=== PATIENT | female | born 1965 | race Caucasian/White ===

== ENCOUNTER 2019-10-29 19:01 | Inpatient (IN) ==
[2019-10-29] MEDS ORDERED: ONDANSETRON INJ 2 MG/ML 2 ML VIAL IV STA ×2 (19:43→20:05)
[2019-10-29] MEDS ORDERED: fentaNYL citrate 100 MCG/2 ML VIAL IV STA (19:43)
[2019-10-29 19:44] LABS: Basophils # (auto) 0.01 K/uL (0-0.2); Basophils % (auto) 0.1 %; Eosinophils # (auto) 0.12 K/uL (0-0.5); Eosinophils % (auto) 1.1 %; Hematocrit (blood only) 37.8 % (37-47); Hemoglobin 12.9 g/dL (12.0-16.0); Immature Granulocytes # (auto) 0.05 K/uL (0.00-0.02); Immature Granulocytes % (auto) 0.5 %; Lymphocytes # (auto) 1.47 K/uL (1.2-3.4); Lymphocytes % (auto) 13.7 %; Mean Corpuscular Hgb Conc 34.1 g/dL (32-36); Mean Corpuscular Volume 93.8 fL (80-100); Mean Platelet Volume 9.7 fL (7.4-10.4); Monocytes # (auto) 0.75 K/uL (0.11-0.59); Neutrophils # (auto) 8.32 K/uL (1.4-6.5); Neutrophils % (auto) 77.6 %; Platelet Count 319 K/uL (130-400); RDW Coefficient of Variation 12.4 % (11.5-14.5); RDW Standard Deviation 42.4 fL (36.4-46.3); Red Blood Count 4.03 M/uL (4.2-5.4); White Blood Count 10.72 K/uL (4.8-10.8)
[2019-10-29 19:52] LABS: Aspartate Aminotransferase 14 U/L (15-37); BUN Creatinine Ratio 19.7 (10-20); Blood Urea Nitrogen 17 mg/dl (7-18); Calcium 9.1 mg/dl (8.5-10.1); Carbon Dioxide 29 mmol/L (21-32); Chloride 103 mmol/L (98-107); Est GFR (African American) 89.4; Est GFR (Non-African American) 77.1; Glucose 134 mg/dl (70-99); Potassium 3.8 mmol/L (3.5-5.1); Sodium 137 mmol/L (136-145)
--- NOTE | 2019-10-29 19:52 | XRay Report ---
XR chest 1V portable CLINICAL HISTORY: Atypical chest pain COMPARISON STUDY: 10/12/2019 FINDINGS: The cardiac and mediastinal contours are normal. There is no evidence of focal pulmonary co nsolidation. There is no evidence of failure. No pleural effusions are visualized.[No pneumothorax is visualized IMPRESSION: No active disease in the chest. ACT 112: Negative or not required by law. Electronically signed by: Kobi Oh M.D. 10/29/2019 7:51 PM
[2019-10-29 20:02] LABS: D Dimer < 190 ug/L FEU (0-500); Partial Thromboplastin Ratio 0.8; Prothrombin Time 10.3 Seconds (9.0-12.0)
[2019-10-29] MEDS ORDERED: fentaNYL citrate 100 MCG/2 ML VIAL IV ONE ×2 (20:05→20:30)
[2019-10-29 20:07] LABS: Alanine Aminotransferase 18 U/L (12-78); Albumin Globulin Ratio 1.1 (0.9-2); Alkaline Phosphatase 70 U/L (45-117); Bilirubin,Total 0.3 mg/dl (0.2-1); Globulin 3.6 gm/dl (2.5-4.0); Total Protein 7.6 gm/dl (6.4-8.2); Troponin I 0.122 ng/ml (0-0.045)
[2019-10-29] MEDS ORDERED: SODIUM CHLORIDE 0.9% 1000ML 500 ML IV ONE (20:28)
[2019-10-29] MEDS ORDERED: NITROGLYCERIN/D5W 100MCG/ML 250 ML IV SCH (20:30)
[2019-10-29] MEDS ORDERED: fentaNYL citrate 100 MCG/2 ML VIAL ONE (20:47)
[2019-10-29] MEDS ORDERED: HEPARIN (PORCINE) 1000 UNIT/ML 10 ML (CATH LAB USE ONLY) ONE (20:47)
[2019-10-29] MEDS ORDERED: NiCARDipine HCL INJ 2.5 MG/ML 10 ML AMP ONE (20:47)
[2019-10-29] MEDS ORDERED: NITROGLYCERIN/D5W 100MCG/ML 20ML SYR ONE (20:48)
[2019-10-29] MEDS ORDERED: MIDAZOLAM HCL 1 MG/ML 2ML VIAL ONE ×2 (20:48→21:25)
[2019-10-29] MEDS ORDERED: TICAGRELOR 90 MG TAB PO ONE (20:53)
[2019-10-29] MEDS ORDERED: HEPARIN SOD (PORCINE) 1000 UNIT/ML 10 ML VIAL ONE (20:53)
--- NOTE | 2019-10-29 20:59 | History & Physical Report ---
Date of Service October 29, 2019 Assessment & Plan (1) ST elevation (STEMI) myocardial infarction: Admit to ICU after cardiac cath Occluded RCA with successful PCI - stent x1 trend trops. (2) CAD (coronary artery disease), [place] coronary artery: Brilinta 90mg BID metoprolol 12.5mg BID lisinopril 5mg QD Lipitor 80mg QD Aspirin 81mg QD SCDs for DVT prophylaxis. History of Present Illness 53 y/o female presented to the ED with onset of right sided chest pain radiating to the right arm and neck with associated nausea, while on exercise bike. She has had similar exertion symptoms over the previous month and had a stress test 1 week prior that was neg for ischemia. No family history of CAD. She does not smoke. I saw patient in her ICU room post cath. She is feeling fine. No chest pain, SOB, or nausea. Primary Care Provider: Richard Seymour MD Allergies Allergy/AdvReac Type Severity Reaction Status Date / Time No Known Allergies Allergy Verified 10/29/19 20:38 Home Medications Home Medications Medication Instructions Recorded Confirmed Type Allergy Relief (cetirizine) 10 mg PO DAILY PRN 10/12/19 10/29/19 History niacin 250 mg PO BID 10/12/19 10/29/19 History omega 3-sks-eoo-fish oil [Fish Oil] 1 cap PO BID 10/12/19 10/29/19 History diclofenac sodium 2 g TOPICAL QID PRN 10/29/19 10/29/19 History meloxicam 15 mg PO DAILY PRN 10/29/19 10/29/19 History Past Med/Surg History Medical History No significant past medical history Surgical History H/O: hysterectomy Family History Father Heart disease Myocardial infarction Social History Preferred Language: Vietnamese Communication Ability: Effective Beliefs That Will Affect Care: None marital status: Current Living Situation: Spouse Feels Safe at Home: Yes Safety Concerns: Feels Safe At This Time Smoking Status: Never smoker Hx Alcohol Use: Yes Hx Substance Use: No Review of Systems Review of Systems: Constitutional- no fever; no weight loss Eyes- no acute visual changes ENT- no sinus drainage; no pharyngitis Pulmonary- no cough, no wheezing, no shortness of breath Cardiac- As in HPI GI- no vomiting, no diarrhea, no melena, no hematochezia - no dysuria, no hematuria Musculoskeletal- no arthralgias, no myalgias Derm- no rashes, no new skin lesions. Hematologic- no unusual bruising, no unusual bleeding Lymphatics- no adenopathy Endocrine- no polyuria or polydipsia; no heat or cold intolerance Neuro- no headaches, no focal neurologic symptoms Psych- no anxiety, no depression Physical Exam Physical Exam: General- adult female Head- atraumatic Eyes- PERRL, EOMI, anicteric ENT- oropharynx clear Neck- supple, no JVD, no adenopathy, no thyromegaly. Lungs- CTA b/l no R/R/W. Heart- regular rhythm; no murmur, no gallop, no rub appreciated Abdomen- normal bowel sounds, soft, nontender. 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 Skin- warm & dry Results & Data Vital Signs (Past 12 Hours) Vital Signs Temp Pulse Pulse Resp BP BP Pulse Ox 10/29/19 20:40 81 17 121/79 98 10/29/19 20:31 93 H 23 99 10/29/19 20:30 88 18 138/85 99 10/29/19 20:23 81 20 127/101 H 98 10/29/19 20:16 86 18 100 10/29/19 20:15 84 14 127/101 H 100 10/29/19 20:01 85 22 99 10/29/19 20:00 88 24 127/85 98 10/29/19 19:45 82 20 99 10/29/19 19:32 82 12 140/84 100 10/29/19 19:31 86 17 95 10/29/19 19:30 79 17 140/84 100 10/29/19 19:18 73 19 97 10/29/19 19:16 69 19 139/82 98 10/29/19 19:14 36.8 C 77 20 139/82 95 Laboratory Results Laboratory Results WBC 10.72 K/uL (4.8-10.8) 10/29/19 19:20 RBC 4.03 M/uL (4.2-5.4) L 10/29/19 19:20 Hgb 12.9 g/dL (12.0-16.0) 10/29/19 19: Hct 37.8 % (37-47) 10/29/19: MCV 93.8 fL (80-100) 10/29/19: MCH 32.0 pg (25-34) 10/29/19: MCHC 34.1 g/dL (32-36) 10/29/19: RDW Std Deviation 42.4 fL (36.4-46.3) 10/29/19: RDW Coeff of Philip 12.4 % (11.5-14.5) 10/29/19: Plt Count 319 K/uL (130-400) 10/29/19: MPV 9.7 fL (7.4-10.4) 10/29/19: Immature Gran % (Auto) 0.5 % 10/29/19: Neut % (Auto) 77.6 % 10/29/19: Lymph % (Auto) 13.7 % 10/29/19: [place] % (Auto) 7.0 % 10/29/19:20 Eos % (Auto) 1.1 % 10/29/19: Baso % (Auto) 0.1 % 10/29/19: Immature Gran # (Auto) 0.05 K/uL (0.00-0.02) H 10/29/19:20 Neut # (Auto) 8.32 K/uL (1.4-6.5) H 10/29/19: Lymph # (Auto) 1.47 K/uL (1.2-3.4) 10/29/19 19:20 [place] # (Auto) 0.75 K/uL (0.11-0.59) H 10/29/19 19:20 Eos # (Auto) 0.12 K/uL (0-0.5) 01/15/20 19:20 Baso # (Auto) 0.01 K/uL (0-0.2) 10/29/19 19:20 PT 10.3 Seconds (9.0-12.0) 10/29/19: INR 1.0 (0.9-1.1) 10/29/19:41 APTT 23.0 Seconds (21.0-31.0) 10/29/19: PTT Ratio 0.8 10/29/19: D-Dimer < 190 ug/L FEU (0-500) 10/29/19 19:41 Sodium 137 mmol/L (136-145) 10/29/19 19:20 Potassium 3.8 mmol/L (3.5-5.1) 10/29/19:20 Chloride 103 mmol/L (98-107) 10/29/19:20 Carbon Dioxide 29 mmol/L (21-32) 10/29/19 19:20 Anion Gap 5.0 (3-11) 10/29/19:20 BUN 17 mg/dl (7-18) 10/29/19 19:20 Creatinine 0.86 mg/dl (0.6-1.2) 10/29/19: Est Cr Clr Drug Dosing Not Reportable 10/29/19: Est GFR ( Amer) 89.4 10/29/19:20 Est GFR (Non-Af Amer) 77.1 10/29/19:20 BUN/Creatinine Ratio 19.7 (10-20) 10/29/19: Glucose 134 mg/dl (70-99) H 10/29/19:20 Calcium 9.1 mg/dl (8.5-10.1) 10/29/19:20 Total Bilirubin 0.3 mg/dl (0.2-1) 10/29/19:20 AST 14 U/L (15-37) L 10/29/19: ALT 18 U/L (12-78) 10/29/19 19:20 Alkaline Phosphatase 70 U/L (45-117) 10/29/19 19:20 Troponin I 0.122 ng/ml (0-0.045) H* 10/29/19: Total Protein 7.6 gm/dl (6.4-8.2) 10/29/19 19:20 Albumin 4.0 gm/dl (3.4-5.0) 10/29/19 19:20 Globulin 3.6 gm/dl (2.5-4.0) 10/29/19 19:20 Albumin/Globulin Ratio 1.1 (0.9-2) 10/29/19 19:20 Diagnostic Findings [place], [place] [phone] XRay Report Patient: CHARLES STEWARTAdmit Date: 10/29/19 MR#: [id number] Acct ID:[id number]: Date: 1965ty Zip: [place] [id number] Age: 53Location: ED Sex: F Room/Bed: Att Phy:Diagnosis: CHEST PAIN Jennifer Phy: PCP,NOService Date: 10/29/19 Fam Phy:Interpreting Phy: Kobi Oh MD Admit Phy: Ordering Phy: Sai Moura MD cc: ~ XR chest 1V portable CLINICAL HISTORY: Atypical chest pain COMPARISON STUDY: 10/12/2019 FINDINGS: The cardiac and mediastinal contours are normal. There is no evidence of focal pulmonary consolidation. There is no evidence of failure. No pleural effusions are visualized.[No pneumothorax is visualized IMPRESSION: No active disease in the chest. ACT 112: Negative or not required by law. Electronically signed by: Kobi Oh M.D. 10/29/2019 7:51 PM Dictated: 10/29/191949 Transcribed: 10/29/191949 PG Care Time/CCT Total # of Minutes Spent Total Time Spent: 55 Total Time Spent with Patient: Total time spent is greater than 50% in coordination of care (as documented) at patient's floor/unit and/or counseling patient:
--- NOTE | 2019-10-29 21:03 | Pre Anesthesia Assessment ---
Date of Service October 29, 2019 Pre Sedation Assessment Vital Signs Temp Pulse Pulse Resp BP BP Pulse Ox 10/29/19 20:40 81 17 121/79 98 10/29/19 20:31 93 H 23 99 10/29/19 20:30 88 18 138/85 99 10/29/19 20:23 81 20 127/101 H 98 10/29/19 20:16 86 18 100 10/29/19 20:15 84 14 127/101 H 100 10/29/19 20:01 85 22 99 10/29/19 20:00 88 24 127/85 98 10/29/19 19:45 82 20 99 10/29/19 19:32 82 12 140/84 100 10/29/19 19:31 86 17 95 10/29/19 19:30 79 17 140/84 100 10/29/19 19:18 73 19 97 10/29/19 19:16 69 19 139/82 98 10/29/19 19:14 98.2 F 77 20 139/82 95 Cardiovascular RRR, no murmur, no edema Respiratory normal respiratory effort, lungs clear to auscultation Pre-Sedation Airway Assessment Smoking Status: Never smoker Hx Sleep Apnea: No Hx Difficult Intubation: No Short, Thick Neck: No Thyromental Distance: > or= 3.5 Finger Breadths Mallampati Class: III Procedure Planning Contraindications for Sedation: none Current Medications Reviewed: Yes Notes The planned sedation has been discussed with the patient. Informed Consent was obtained. I have identified the patient, determined the appropriateness of sedation and have assessed the patient immediately prior to the procedure. All medicine(s) and interventions are by my order.
--- NOTE | 2019-10-29 21:04 | Cardiology Consultation ---
Date of Consultation October 29, 2019 Assessment & Plan (1) ST elevation (STEMI) myocardial infarction: Presentation consistent with inferior STEMI and recommend proceeding with emergent cardiac catheterization and likely primary PCI. No apparent contraindications to procedure. Discussed risks, benefits, alternatives of procedure with patient and they are willing to proceed. Given IV heparin and ticagrelor 180 mg in the ED. Further recommendations pending findings of coronary angiography. History of Present Illness History of Present Illness 53-year-old woman here with acute chest pain and ECG concerning for acute OH. Patient seen emergently in the ED after heart alert activated after fourth EKG showed inferior ST elevation. No prior cardiac history. reports being healthy at baseline with only dysli pidemia which she was managing with diet and niacin. Takes NSAIDs for bone spurs. Reports intermittent chest discomfort over the last several weeks. Was seen in the ED back in 09/2019 at which time 0 EKGs unremarkable, troponins negative. Reportedly underwent a stress test in [place] which was unremarkable. Treated for possible URI/bronchitis with prednisone. Today was attempting to resume regular exercise when developed chest pain which radiated down her right arm was associated with nausea. Pain different than what she had before. Increasingly severe, up to 9 out of 10 and presented to the ED. Received multiple sublingual nitroglycerin with only modest relief of chest pain. Initial EKG with inverted anterior, lateral T waves. Third and fourth EKGs showed worsening inferior ST elevations with persistent pain. Patient hemodynamically stable. Initial troponin 0.122/ Family history: Father evidently had a stent placed in his 50s Social history: Non-smoker. Denies heavy alcohol. 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 . Allergies Allergy/AdvReac Type Severity Reaction Status Date / Time No Known Allergies Allergy Verified 10/29/19 20:38 Home Medications Home Medications Medication Instructions Recorded Confirmed Type Allergy Relief (cetirizine) 10 mg PO DAILY PRN 10/12/19 10/29/19 History niacin 250 mg PO BID 10/12/19 10/29/19 History omega 9-vcf-dbg-fish oil [Fish Oil] 1 cap PO BID 10/12/19 10/29/19 History diclofenac sodium 2 g TOPICAL QID PRN 10/29/19 10/29/19 History meloxicam 15 mg PO DAILY PRN 10/29/19 10/29/19 History Patient History Medical History No significant past medical history Surgical History H/O: hysterectomy Family History Father Heart disease Myocardial infarction Social History Preferred Language: Kazakh Communication Ability: Effective marital status: Current Living Situation: Spouse Feels Safe at Home: Yes Smoking Status: Never smoker Review of Systems Review of Systems: Not completed in the setting of emergent situation Physical Exam Physical Exam: General: Uncomfortable, anxious HEENT: Sclerae anicteric, mucous membranes moist Lungs: Clear to auscultation bilaterally, no rhonchi or wheezes Cardiac: Regular rate and rhythm, no murmurs. Abdomen: Soft, nontender, nondistended, positive bowel sounds. Extremities: Warm, well perfused, no edema. 2+ radial pulses Skin: No rashes or lesions. Neuro: Nonfocal Psych: Alert and oriented Results & Data Vital Signs (Past 12 Hours) Vital Signs Temp Pulse Pulse Resp BP BP Pulse Ox 10/29/19 20:40 81 17 121/79 98 10/29/19 20:31 93 H 23 99 10/29/19 20:30 88 18 138/85 99 10/29/19 20:23 81 20 127/101 H 98 10/29/19 20:16 86 18 100 10/29/19 20:15 84 14 127/101 H 100 10/29/19 20:01 85 22 99 10/29/19 20:00 88 24 127/85 98 10/29/19 19:45 82 20 99 10/29/19 19:32 82 12 140/84 100 10/29/19 19:31 86 17 95 10/29/19 19:30 79 17 140/84 100 10/29/19 19:18 73 19 97 10/29/19 19:16 69 19 139/82 98 10/29/19 19:14 98.2 F 77 20 139/82 95 PG Care Time/CCT Total # of Minutes Spent Total Time Spent with Patient: Total time spent is greater than 50% in coordination of care (as documented) at patient's floor/unit and/or counseling patient:
[2019-10-29] MEDS ORDERED: ATROPINE SULFATE 0.1 MG/ML 10ML SYR IV ONE (21:29)
[2019-10-29] MEDS ORDERED: EPTIFIBATIDE 2 MG/ML 10 ML VIAL (CATH LAB USE ONLY) IV ONE ×2 (21:33→21:37)
[2019-10-29] MEDS ORDERED: EPTIFIBATIDE 0.75 MG/ML 75MG VIAL (CATH LAB USE ONLY) ONE (21:34)
[2019-10-29] MEDS ORDERED: ONDANSETRON INJ 2 MG/ML 2 ML VIAL IV PRN (22:05)
[2019-10-29] MEDS ORDERED: ICU PROTOCOL FOR HYPERGLYCEMIA PRN (22:05)
[2019-10-29] MEDS ORDERED: NITROGLYCERIN SL 0.4 MG/TAB TAB SL PRN (22:05)
--- NOTE | 2019-10-29 22:12 | Post Anesthesia Assessment ---
Date of Service October 29, 2019 Post Sedation Assessment Vital Signs Temp Pulse Pulse Resp BP BP Pulse Ox 10/29/19 20:40 81 17 121/79 98 10/29/19 20:31 93 H 23 99 10/29/19 20:30 88 18 138/85 99 10/29/19 20:23 81 20 127/101 H 98 10/29/19 20:16 86 18 100 10/29/19 20:15 84 14 127/101 H 100 10/29/19 20:01 85 22 99 10/29/19 20:00 88 24 127/85 98 10/29/19 19:45 82 20 99 10/29/19 19:32 82 12 140/84 100 10/29/19 19:31 86 17 95 10/29/19 19:30 79 17 140/84 100 10/29/19 19:18 73 19 97 10/29/19 19:16 69 19 139/82 98 10/29/19 19:14 98.2 F 77 20 139/82 95 Recovery Score Activity: Moves 4 extremities Respiration: Deep Breath/Cough Circulation: +/-20% PreAnes Value Consciousness: Fully Awake Oxygen Saturation: O2 needed for >90% Discharge Sedation Level of Care: Fast Track Phase II Post Sedation Plan On clinical assessment, the patient appears to have tolerated the sedation w ithout complications. Patient is recovering as anticipated. Patient will continue to be monitored by nursing and may be discharged when sedation discharge criteria are met per below protocol. Upon Completions of procedure up to 15 minutes continue every 5 minute vital signs and the P.A.R. score; then discharge to a Phase I or Fast Track to Phase II per the following guidelines: * Discharge Patient to appropriate Phase II area if PAR is 8 or greater or return to pre- procedure baseline. The post - procedure orders will be as directed. * If PAR score is less than 8 or not return to pre-procedure baseline then patient will follow Phase I monitoring till PAR is reached for Phase II. The Phase I may be done in procedure room or may call to secure a Phase I area. * If naloxone or flumazenil are used for reversal, hold in Phase I for continued monitoring from when last reversal dose was given for a minimum of 60 minutes or longer pending the nurse and/or physician discretion of patient condition before discharge to Phase II. Please call the Sedation Physician to re-evaluate and complete post-note for discharge to Phase II area. Do NOT discharge from procedure sedation or Phase 1 until post- sedation evaluation note is complete by procedure /sedation MD Sedation Discharge Instructions to be given to the patient at discharge to home.
[2019-10-29] MEDS ORDERED: SODIUM CHLORIDE 0.9% 500 ML IV SCH (22:30)
--- NOTE | 2019-10-29 22:32 | Cardiac Catheterization ---
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 Cardiac Status Clinical evaluation leading to the procedure CAD Presenation: STEMI Anginal Classification: CCS IV Heart Failure: No Cardiogenic Shock within 24 Hours: No Cardiac Arrest within 24 Hours: No Imaging Studies Past 6 Months: No Stress Studies Past 6 Months: Yes Stress Echocardiogram: Yes - Negative Diagnostic Physicians Name: Renato Coombs MD Status: Emergency Closure Device Percutaneous Entry Location: Radial Closure Device: Radial Band Recommendations: PCI without planned CABG PCI Indication: Immediate PCI for STEMI First Noted: Subsequent EKG Reason For Delay in PCI:: Difficult vascular access Lesion Segment Name: mid RCA Culprit Artery: Yes Stenosis Prior to Rx (%): 100 Chronic Total Occlusion: No IVUS: No FFR: No Pre-Procedure SURESH Flow: 0 Previously Treated Lesion: No Lesion Complexity: Non-High/Non-C Lesion Length (mm): 18 Thrombus Present: Yes Bifurcation Lesion: No Guidewire Across Lesion: Stenosis Post-Procedure (%): 0 Post-Procedure SURESH Flow: 3 Devices(s) Deployed: Yes Yes Intraprocedure Events Significant Disection: No Perforation: No Cardiac Cath Procedure Full Procedure Date October 29, 2019 Pre-Procedure Diagnosis Pre-Procedure Diagnosis: STEMI AUC Score AUC Score: 9 Post-Procedure Diagnosis Post-Procedure Diagnosis: Severe CAD, Successful PCI and Elevated Intracardiac Pressures Procedure(s) Performed Procedure(s) Performed: Coronary Angiography, Left Heart Cath, Drug Eluting Stent and Ultrasound Guided Vascular Access Network Communications Engineer Renato Coombs MD Vice President Of Talent Acquisition(s) [place] Estimated Blood Loss Estimated Blood Loss: 15 Medication(s) Medication(s): Aspirin, Atropine, Fentanyl, Heparin, Integrilin, Lidocaine 1%, Nicardipine, Nitroglycerin and Versed Medication(s): Ticagrelor Summary of Findings Indication: STEMI/Heart Alert Access: 6 Fr slender right radial artery under ultrasound guidance Catheters: [place], JL 3.5, pigtail, JR4 guide Findings: LM -large-caliber, luminal irregularities LAD -medium caliber vessel, 40% diffuse proximal to mid disease extending across bifurcation of medium caliber second diagonal. Mid to distal luminal irregularities as vessel wraps around apex. Second diagonal with 30% proximal disease. Circumflex -medium caliber vessel, 20 to 30% diffuse proximal to mid disease, 30% ostial stenosis of medium OM 2. RCA -dominant, large caliber vessel, mildly calcified, 100% acute thrombotic mid occlusion. PDA partially filled retrograde via [id number] collaterals LVEDP -20 -- PCI -- Antithrombotic therapy: Heparin, IC Integrilin bolus, ticagrelor Procedure: RCA cannulated with JR4 guide BMW wire passed across lesion into distal vessel Mid RCA lesion predilated with 2.5 compliant balloon Dilated lesion stented with 4.0 x 22 mm [place] drug-eluting Stent post-dilated with 4.5 noncompliant balloon IC vasodilators administered for spasm Some residual thrombus and very distal PDA. IC Integrilin administered. Distal PDA dilated with 2.0 balloon. Post procedure SURESH 3 flow, stent well expanded with minimal residual stenosis and no apparent cardiac complications. Post stent placement patient developed bradycardia/hypotension which responded to 0.5 of atropine and IV fluids Arterial Closure: TR band Summary: 1. Inferior STEMI/100% acute on chronic mid RCA occlusion 2. Mild to moderate non-culprit vessel coronary artery disease -Diffuse 40% proximal to mid LAD disease. Gave off faint collaterals to the right PDA. 30% mid circumflex into OM 2 3. Elevated intracardiac filling pressure 4. Successful PCI of mid RCA with single drug-eluting stent (4.0 x 22 mm [place]; postdilated with 4.5 NC). Recommendations: Admit to ICU for continued monitoring Loaded with ticagrelor 180 mg in cath Continue dual-antiplatelet therapy for at least 1 year. Trend troponins until peak, Check Echo Uptitrate beta-kolton/EUGENIA as BP allows High-dose statin Consult cardiac Rehab Hemodynamics Rest Ao:: 130/76/124 Final Ao: 114/65/76 LV: 103/20 Recommendations Recommendations: PCI without planned CABG Specimens Specimens: None Radiation Exposure (mGy) 2101 Contrast (mls) 130 Fluids (cc crystalloids) Fluids (cc crystalloids): 92 Drains Drains: none Anesthesia moderate Procedural Complication(s) None Disposition ICU I attest to the content of the Intraoperative Record and any orders documented therein. Any exceptions are noted below. MyrioG Card Cath Procedure Codes Cardiac Catheterization Procedure 1: Cardiovascular Cath Procedures: 56426 Coronaries and LHC (+/-LV) Therapeutic Services & Ancillary Proc Procedure 1: Cardiovascular Tx and Anc Procedures: 85649 Ultrasonic Guidance Vascular Access Moderate Sedation Procedure 1: Sedation/Anesthesia: 82865 Mod Sedation by the same physician;Init15 Min Child Age 5 & Up Procedure 2: Sedation/Anesthesia: 92119 Mod Sedation by the same physician; Ea [id number] Minutes Stenting Procedure 1: Cardiovascular Stent Procedures: 46118 Perc transluminal revascularization of acute sub/total occl, aMI PG Care Time/CCT Total # of Minutes Spent Total Time Spent with Patient: Total time spent is greater than 50% in coordination of care (as documented) at patient's floor/unit and/or counseling patient:
--- NOTE | 2019-10-29 22:46 | Critical Care Consultation ---
Date of Consultation October 29, 2019 Assessment & Plan (1) Admitted to intensive care unit: Reason Critically Ill: 53-year-old female with acute inferior STEMI s/p PTCA w/ SMITHA x1 to the mid RCA. NEURO - * [facility] ICU: NEGATIVE CARDIAC/VASCULAR - * Acute Inferior STEMI s/p PTCA w/ DESx1 to the mid RCA: * Trend troponins. * ASCVD Rx per typical. * Brilinta to be started in AM. * AM Echo * EKG: Serial EKGs w/ demonstration of acute inferior STEMI w/ ST elevations in inferior leads w/ a rate of 81bpm and QTc of 425 on EKG timed 20:29:05. * Monitor on telemetry. RESPIRATORY - * No h/o respiratory disease. * Saturating well on room air. GI/NUTRITION - * AHA diet RENAL/LYTES - * No significant electrolyte derangements. * IVF: NSS@75mL/hr x500mL - * No concerns at this time. ENDO - * No h/o DM or Thyroid Dz * BSGs per unit protocol. ISS --> gtt per unit policy. HEME - * Stable H&H ID - * No concerns for infectious contribution at this time. LINES/IV ACCESS - * PIVs x2 * TR Band to the RIGHT wrist. DVT PROPHYLAXIS - * Hold on chemoprophylaxis s/p Integrilin, Brilinta, Heparin intraprocedurally. * SCDs I have personally spent 35 minutes of critical care time in the direct management of this patient. This is a life/limb threatening event. This includes time spent evaluating patient, direct bedside care, chart review, placing orders, interpretation of diagnostic studies, discussion with consultants, patient, and family members, as well as other required patient management activi ties. This time is exclusive of all separately billable procedures, and teaching time and separate from and in addition to any other critical care service time. Thank you for allowing us to participate in the care of this patient. Please refer to my attending physician's documentation for any further recommendations. (2) S/P PTCA (percutaneous transluminal coronary angioplasty): (3) S/P drug eluting coronary stent placement: (4) CAD (coronary artery disease), elem coronary artery: (5) ST elevation (STEMI) myocardial infarction: (6) Exertional chest pain: Supervising Physician Co-Signing Physician Notes I was advised of this patient during the morning signout. I agree with assessment and plan of Emmanuelle Marc PA-C. Prior to my individual evaluation on October 30, 2019 the patient had been seen by the hospitalist service and transferred to telemetry. History of Present Illness Attending Physician: Stalin Jacob, DO History of Present Illness Patient is a 53-year-old female who presented to the emergency department this evening with complaints of crushing RIGHT-sided chest pain with radiation to the RIGHT sided jaw as well as arm. She had associated nausea. She has been expe riencing similar symptoms of RIGHT-sided chest pain as well as radiation to the arm and jaw during exercise alone. She had been seen in the emergency department and did follow-up appropriately with cardiology and underwent stress echocardiogram which demonstrated no significant findings. The patient began to resume exercise today. While using her stationary bicycle, she noticed much more intense RIGHT-sided chest pain which was much worse than any she had experienced in the past. The pain did not remit which it had previously done. She presented to the emergency department. Upon arrival, the pain did improve somewhat during initial EKG and laboratory assessment, but throughout her stay she had worsening pain with associated EKG changes consistent with acute inferior STEMI. Heart alert was called and the patient was taken to the catheterization suite where she underwent successful PTCA with SMITHA x1 to the mid RCA. Post intervention, the patient does complain of some slight discomfort to the upper RIGHT-sided chest, but reports that it is insignificant when compared to recent chest pain episodes. Upon arrival in the ICU, the patient is awake, alert, and oriented. She feels m uch better at this time despite her slight RIGHT-sided chest discomfort. She currently denies any headaches, dizziness, lightheadedness, palpitations, shortness of breath, pleuritic pain, nausea, vomiting, abdominal pain, or numbness/weakness to the extremities. Patient has a significant family history of coronary artery disease. Otherwise, patient's risk factors are limited to hyperlipidemia currently controlled with diet, fish oil, niacin. Allergies Allergy/AdvReac Type Severity Reaction Status Date / Time No Known Allergies Allergy Verified 10/29/19 20:38 Home Medications Home Medications Medication Instructions Recorded Confirmed Type Allergy Relief (cetirizine) 10 mg PO DAILY PRN 10/12/19 10/29/19 History niacin 250 mg PO BID 10/12/19 10/29/19 History omega [id number]-[id number]-fish oil [Fish Oil] 1 cap PO BID 10/12/19 10/29/19 History diclofenac sodium 2 g TOPICAL QID PRN 10/29/19 10/29/19 History meloxicam 15 mg PO DAILY PRN 10/29/19 10/29/19 History Patient History Medical History CAD (coronary artery disease), elem coronary artery No significant past medical history Surgical History H/O: hysterectomy Family History Father Heart disease Myocardial infarction Social History Preferred Language: Maltese Communication Ability: Effective Beliefs That Will Affect Care: None marital status: Current Living Situation: Spouse Feels Safe at Home: Yes Safety Concerns: Feels Safe At This Time Smoking Status: Never smoker Hx Alcohol Use: Yes Hx Substance Use: No Review of Systems Review of Systems: A complete 10 point review of systems was reviewed with the patient with pertinent positives and negatives as per history of present illness. All else were negative. Physical Exam Physical Exam: VITAL SIGNS - Vital signs and nursing notes were reviewed. GENERAL - 53-year-old female appearing her stated age who is in no acute distress. Communicates well with provider and answers questions appropriately. HEAD - NC/AT. EYES - PERRL with EOMI bilaterally. Sclera anicteric. EARS - No deformities of external structures noted on gross examination bilaterally. NOSE - Midline and without cyanosis. No epistaxis or purulent drainage noted. MOUTH/OROPHARYNX - Without perioral cyanosis. Buccal mucosa pink and moist and without leukoplakia. Good dentition noted. NECK - Neck with FROM. LUNGS - Chest wall symmetric without accessory muscle use, intercostals retractions, or central cyanosis. Normal vesicular breath sounds CTA B/L. No wheezes, rales, or rhonchi appreciated. CARDIAC - RRR with S1/S2. No murmur, rubs, or gallops appreciated. Slight reproducible tenderness to palpation appreciated over the RIGHT sided anterior chest wall. ABDOMEN - Abdominal contour flat without pulsations or visible masses. BS normoactive all four quadrants. No tenderness, palpable masses, hepatosplenomegaly, or ascites noted. EXTREMITIES - No clubbing or peripheral cyanosis. No pretibial edema present. +3/5 radial and dorsalis pedis pulses palpated throughout. +5/5 strength noted in UE/LE bilaterally. NEUROLOGIC - Cranial nerves II through XII grossly intact. Sensory intact to light touch throughout. PSYCH - A&Ox3 and cooperates fully with examiner. Pt is very pleasant and interacts well with examiner. Results & Data Vital Signs (Past 12 Hours) Vital Signs Temp Pulse Pulse Resp BP BP Pulse Ox 10/29/19 22:18 36.3 C L 80 18 117/63 98 10/29/19 20:40 81 17 121/79 98 10/29/19 20:31 93 H 23 99 10/29/19 20:30 88 18 138/85 99 10/29/19 20:23 81 20 127/101 H 98 10/29/19 20:16 86 18 100 10/29/19 20:15 84 14 127/101 H 100 10/29/19 20:01 85 22 99 10/29/19 20:00 88 24 127/85 98 10/29/19 19:45 82 20 99 10/29/19 19:32 82 12 140/84 100 10/29/19 19:31 86 17 95 10/29/19 19:30 79 17 140/84 100 10/29/19 19:18 73 19 97 10/29/19 19:16 69 19 139/82 98 10/29/19 19:14 36.8 C 77 20 139/82 95 Coding Level of Care Code Critical Care 1st 30-74 mins Diagnoses Admitted to intensive care unit Z78.9 S/P PTCA (percutaneous transluminal coronary angioplasty) Z98.61 S/P drug eluting coronary stent placement Z95.5 CAD (coronary artery disease), elem coronary artery I25.10 ST elevation (STEMI) myocardial infarction I21.3 Exertional chest pain R07.9 Time Spent (min) 35
[2019-10-29] MEDS: TICAGRELOR 90 MG TAB PO SCH (23:00)
--- NOTE | 2019-10-30 01:39 | Emergency Department Note ---
Entered by Tammy Bhakta acting as a scribe for Sai Moura MD History of Present Illness General Chief complaint: Cardiac Assessment Stated complaint: CHEST PAIN Time Seen by Provider: 10/29/19 19:36 Source: patient Mode of arrival: EMS Limitations: no limitations History of Present Illness Onset (ago): hour(s) 3 Location: chest Radiation: extremity (left arm) Maximum Pain Intensity: 5 Current Pain Intensity: 7 Relieved By: + medication Associated symptoms: + diaphoresis and + other (-abdominal pain) Treatments prior to arrival: other (medication given by EMS, patient is unsure of the names) The patient is a 53 year old female with a limited past medical history who presents to the ED with complaints of chest pain that began around 1630 this afternoon. She was brought to the ED via EMS. She states the pain is located in the middle of her chest and radiates down her left arm. She rates her pain as a 7/10 in severity and states the nitroglycerin x3 she was given by EMS has provided no relief. She was on an exercise bike when the pain started. She notes she was diaphoretic when the pain started, and was also "shaking". She is unsure if the diaphoresis was from exercise or pain. She admits to recent issues with pain during exercise about 3 weeks ago that was found to be "a virus that had settled in her chest." She did have a cardiac stress test without limitations 1 week ago that was normal. She denies any history of hypertension or diabetes and is not on any daily medications. The patient state her father had heart disease and had stents placed in his late 50's. She denies being on hormone replacement therapy. She denies any recent episodes of being bedridden or recent long trips. She denies any abdominal pain. Home Medications Home Medications Medication Instructions Recorded Confirmed Type Allergy Relief (cetirizine) 10 mg PO DAILY PRN 10/12/19 10/29/19 History niacin 250 mg PO BID 10/12/19 10/29/19 History omega 9-zrl-gio-fish oil [Fish Oil] 1 cap PO BID 10/12/19 10/29/19 History diclofenac sodium 2 g TOPICAL QID PRN 10/29/19 10/29/19 History meloxicam 15 mg PO DAILY PRN 10/29/19 10/29/19 History Allergies Allergy/AdvReac Type Severity Reaction Status Date / Time No Known Allergies Allergy Verified 10/29/19 20:38 Past Med/Surg History Medical History CAD (coronary artery disease), [place] coronary artery No significant past medical history Surgical History H/O: hysterectomy Family History Father Heart disease Myocardial infarction Social History Preferred Language: Portuguese Communication Ability: Effective Beliefs That Will Affect Care: None marital status: Current Living Situation: Spouse Feels Safe at Home: Yes Safety Concerns: Feels Safe At This Time Smoking Status: Never smoker Hx Alcohol Use: Yes Hx Substance Use: No Review of Systems See HPI for pertinent positives & negatives. and A total of 10 systems reviewed and were otherwise negative Physical Exam Vital Signs Vital Signs - 24 hr 10/29/19 19:14 10/29/19 19:16 10/29/19 19:18 Temperature 36.8 C Temperature Source Oral Pulse Rate 77 69 73 Pulse Rate [Apical] Pulse Rate from SpO2 Sensor 69 74 Respiratory Rate 20 19 19 Respiratory Effort / Characteristics Non-Labored Spontaneous Respiratory Depth Normal Respiratory Pattern Regular Blood Pressure 139/82 139/82 Blood Pressure [Left Arm] Blood Pressure Mean 101 88 Blood Pressure Mean [Left Arm] Blood Pressure Position Semi-fowlers Blood Pressure Position [Left Arm] Pulse Oximetry 95 98 97 Oxygen Delivery Method Room Air Sepsis Recent Fever Within 48 Hours No Sepsis New/Unexplained Change in Mental Status No Sepsis Action Taken by Nursing No Action Required Pulse Oximetry Post Tiitration 10/29/19 19:30 10/29/19 19:31 10/29/19 19:32 Temperature Temperature Source Pulse Rate 79 86 82 Pulse Rate [Apical] Pulse Rate from SpO2 Sensor 79 86 79 Respiratory Rate 17 17 12 Respiratory Effort / Characteristics Respiratory Depth Respiratory Pattern Blood Pressure 140/84 140/84 Blood Pressure [Left Arm] Blood Pressure Mean 93 93 Blood Pressure Mean [Left Arm] Blood Pressure Position Blood Pressure Position [Left Arm] Pulse Oximetry 100 95 100 Oxygen Delivery Method Sepsis Recent Fever Within 48 Hours Sepsis New/Unexplained Change in Mental Status Sepsis Action Taken by Nursing Pulse Oximetry Post Tiitration 10/29/19 19:37 10/29/19 19:45 10/29/19 20:00 Temperature Temperature Source Pulse Rate 82 88 Pulse Rate [Apical] Pulse Rate from SpO2 Sensor 82 89 Respiratory Rate 20 24 Respiratory Effort / Characteristics Respiratory Depth Respiratory Pattern Blood Pressure 127/85 Blood Pressure [Left Arm] Blood Pressure Mean 99 Blood Pressure Mean [Left Arm] Blood Pressure Position Blood Pressure Position [Left Arm] Pulse Oximetry 99 98 Oxygen Delivery Method Room Air Sepsis Recent Fever Within 48 Hours Sepsis New/Unexplained Change in Mental Status Sepsis Action Taken by Nursing Pulse Oximetry Post Tiitration 95 10/29/19 20:01 10/29/19 20:15 10/29/19 20:16 Temperature Temperature Source Pulse Rate 85 84 86 Pulse Rate [Apical] Pulse Rate from SpO2 Sensor 85 86 87 Respiratory Rate 22 14 18 Respiratory Effort / Characteristics Respiratory Depth Respiratory Pattern Blood Pressure 127/101 H Blood Pressure [Left Arm] Blood Pressure Mean 110 Blood Pressure Mean [Left Arm] Blood Pressure Position Blood Pressure Position [Left Arm] Pulse Oximetry 99 100 100 Oxygen Delivery Method Sepsis Recent Fever Within 48 Hours Sepsis New/Unexplained Change in Mental Status Sepsis Action Taken by Nursing Pulse Oximetry Post Tiitration 10/29/19 20:23 10/29/19 20:30 10/29/19 20:31 Temperature Temperature Source Pulse Rate 88 93 H Pulse Rate [Apical] 81 Pulse Rate from SpO2 Sensor 90 92 H Respiratory Rate 20 18 23 Respiratory Effort / Characteristics Non-Labored Spontaneous Respiratory Depth Normal Respiratory Pattern Regular Blood Pressure 138/85 Blood Pressure [Left Arm] 127/101 H Blood Pressure Mean 94 Blood Pressure Mean [Left Arm] 109 Blood Pressure Position Blood Pressure Position [Left Arm] Sitting Pulse Oximetry 98 99 99 Oxygen Delivery Method Room Air Nasal Cannula Sepsis Recent Fever Within 48 Hours Sepsis New/Unexplained Change in Mental Status Sepsis Action Taken by Nursing Pulse Oximetry Post Tiitration 10/29/19 20:40 Temperature Temperature Source Pulse Rate 81 Pulse Rate [Apical] Pulse Rate from SpO2 Sensor 80 Respiratory Rate 17 Respiratory Effort / Characteristics Respiratory Depth Respiratory Pattern Blood Pressure 121/79 Blood Pressure [Left Arm] Blood Pressure Mean 83 Blood Pressure Mean [Left Arm] Blood Pressure Position Blood Pressure Position [Left Arm] Pulse Oximetry 98 Oxygen Delivery Method Sepsis Recent Fever Within 48 Hours Sepsis New/Unexplained Change in Mental Status Sepsis Action Taken by Nursing Pulse Oximetry Post Tiitration Constitutional: Vital signs reviewed. Patient is anxious appearing, rocking back and forth on the bed. Eyes: Pupils are equal round reactive to light. Conjunctiva are noninjected. ENT: Pharynx is clear without erythema or exudate. Mucous membranes are moist. Neck supple without meningeal signs. Respiratory: Clear to auscultation bilaterally. Breath sounds are equal bilaterally. Cardiovascular: Regular rate and rhythm. No rubs or gallops. GI: Soft, nondistended and nontender. Bowel sounds are present. Musculoskeletal: No peripheral edema. No lower extremity tenderness. Integumentary: No cyanosis. Neurological: The patient is awake and alert. No focal deficits. Psychiatric: Anxious appearing Course Course 1937: The patient was evaluated in room C5 and a complete history and physical were performed. 1999: She states her pain is down to a 2/10. She is much more relaxed and I discussed her EKG with her. 2017: I reevaluated the patient. She states her pain got better, then got worse and rates it as a 3/10 in severity. 2020: I discussed the patients case with Dr. Kent, [facility]. He recommends I speak with Dr. Coombs. 2024: I discussed the patients case with Dr. Coombs, Interventional Cardiology. He agrees with calling a heart alert. The patient will be further evaluated. 2027: I reevaluated the patient. She is still having chest pain. Dr. Coombs is on the way in. I have ordered a right sided EKG. 2034: I reevaluated the patient. She rates her pain as a 3/10. I ordered IV nitro, fluids and Fentanyl. 2049: Dr. Coombs is in the room with the patient explaining catheterization. 2053: I discussed the patients case with Dr. Jacob, [facility]. The patient will be further evaluated. Consultations Consultation #1: I discussed the patients case with Dr. Kent [facility]. He recommends I speak with Dr. Coombs. Time: 20:20 Consultation #2: I discussed the patients case with Dr. Coombs, Interventional Cardiology. He agrees with calling a heart alert. The patient will be further evaluated. Time: 20:25 Administered Medications Nitroglycerin/Dextrose (Nitroglycerin/D5w 100 Mcg/Ml) 250 mls @ 3 mls/hr IV .Q24H ADRIANNE; Protocol Stop: 11/28/19 20:29 Last Titration: 10/29/19 20:46 Dose: 20 mcg/min, 12 mls/hr Documented by: [id number] Titration: 10/29/19 20:42 Dose: 10 mcg/min, 6 mls/hr Documented by: [id number] Admin: 10/29/19 20:37 Dose: 5 mcg/min, 3 mls/hr Documented by: [id number] Cosigned by: [id number] Sodium Chloride (Nss) 500 mls @ 75 mls/hr IV .Q6H40M [facility] Stop: 10/30/19 05:09 Last Admin: 10/29/19 22:45 Dose: 75 mls/hr Documented by: [id number] Ticagrelor (Brilinta) 90 mg PO BID [facility] Stop: 11/28/19 20:59 Last Admin: 10/29/19 23:00 Dose: Not Given Documented by: [id number] Discontinued Medications Atropine Sulfate (Atropine Sulfate) Confirm Administered Dose 1 mg IV .STK-MED ONE Stop: 10/29/19 21:30 Last Admin: 10/29/19 22:43 Dose: Not Given Documented by: [id number] Eptifibatide (Integrilin (Front Maker Use Only)) Confirm Administered Dose 20 mg IV .STK-MED ONE Stop: 10/29/19 21:34 Last Admin: 10/29/19 22:43 Dose: Not Given Documented by: [id number] Eptifibatide (Integrilin (Front Maker Use Only)) Confirm Administered Dose 75 mg .ROUTE .STK-MED ONE Stop: 10/29/19 21:35 Last Admin: 10/29/19 22:43 Dose: Not Given Documented by: [id number] Eptifibatide (Integrilin (Front Maker Use Only)) Confirm Administered Dose 20 mg IV .STK-MED ONE Stop: 10/29/19 21:38 Last Admin: 10/29/19 22:43 Dose: Not Given Documented by: [id number] Fentanyl Citrate (Fentanyl Citrate) 50 mcg IV NOW STA Stop: 10/29/19 19:44 Last Admin: 10/29/19 19:48 Dose: 50 mcg Documented by: [id number] Fentanyl Citrate (Fentanyl Citrate) 25 mcg IV NOW ONE Stop: 10/29/19 20:06 Last Admin: 10/29/19 20:12 Dose: 25 mcg Documented by: [id number] Fentanyl Citrate (Fentanyl Citrate) 25 mcg IV NOW ONE Stop: 10/29/19 20:31 Last Admin: 10/29/19 20:36 Dose: 25 mcg Documented by: [id number] Fentanyl Citrate (Fentanyl Citrate) Confirm Administered Dose 100 mcg .ROUTE .STK-MED ONE Stop: 10/29/19 20:48 Last Admin: 10/29/19 22:39 Dose: Not Given Documented by: [id number] Heparin Sodium (Porcine) (Heparin Iv Bolus (Front Maker Use Only)) Confirm Administered Dose 10,000 units .ROUTE .STK-MED ONE Stop: 10/29/19 20:48 Last Admin: 10/29/19 22:39 Dose: Not Given Documented by: [id number] Heparin Sodium (Porcine) (Heparin Iv Bolus) Confirm Administered Dose 10,000 u nits .ROUTE .STK-MED ONE Stop: 10/29/19 20:54 Last Admin: 10/29/19 20:59 Dose: 5,000 units Documented by: [id number] Cosigned by: [id number] Heparin Sodium/Sodium Chloride (Heparin/Nss 1000 Unit/500ml Flush Bag) Confirm Administered Dose 3,000 units IV .STK-MED ONE Stop: 10/29/19 20:49 Last Admin: 10/29/19 22:40 Dose: Not Given Documented by: [id number] Sodium Chloride (Nss 1000ml) 500 mls @ 999 mls/hr IV .Q31M ONE Stop: 10/29/19 20:58 Last Infusion: 10/29/19 22:45 Dose: 0 mls/hr Documented by: [id number] Admin: 10/29/19 20:37 Dose: 999 mls/hr Documented by: [id number] Midazolam HCl (Versed) Confirm Administered Dose 2 mg .ROUTE .STK-MED ONE Stop: 10/29/19 20:49 Last Admin: 10/29/19 22:42 Dose: Not Given Documented by: [id number] Midazolam HCl (Versed) Confirm Administered Dose 2 mg .ROUTE .STK-MED ONE Stop: 10/29/19 21:26 Last Admin: 10/29/19 22:42 Dose: Not Given Documented by: [id number] Nicardipine HCl (Cardene) Confirm Administered Dose 25 mg .ROUTE .STK-MED ONE Stop: 10/29/19 20:48 Last Admin: 10/29/19 22:39 Dose: Not Given Documented by: [id number] Nitroglycerin/Dextrose (Nitroglycerin/D5w 100 Mcg/Ml 20ml Syringe) Confirm Administered Dose 2,000 mcg .ROUTE .STK-MED ONE Stop: 10/29/19 20:49 Last Admin: 10/29/19 22:40 Dose: Not Given Documented by: [id number] Ondansetron HCl (Zofran) 4 mg IV NOW STA Stop: 10/29/19 19:44 Last Admin: 10/29/19 19:48 Dose: 4 mg Documented by: [id number] Ondansetron HCl (Zofran) 4 mg IV NOW STA Stop: 10/29/19 20:06 Last Admin: 10/29/19 20:21 Dose: 4 mg Documented by: [id number] Ticagrelor (Brilinta) Confirm Administered Dose 180 mg PO .STK-MED ONE Stop: 10/29/19 20:54 Last Admin: 10/29/19 20:59 Dose: 180 mg Documented by: [id number] Critical Care Time Critical Care Time: Yes Total Critical Care Time: 45 I have personally spent approximately 45 minutes of critical care time in the direct management of this patient. This includes bedside care, interpretation of diagnostic studies, and testing, discussion with consultants, patient, and family members, and other required patient management activities. This 45 minutes is in excess of all separately billable procedures. Medical Decision Making Differential Diagnosis The differential diagnoses considered include OK, unstable angina, PE, aortic dissection, pleurisy. Medical Records Attestation: I reviewed the patient's medical records. I did perform a limited focused review of portions of the patient's old chart on the electronic medical record. The patient was seen for chest pain on October 12. She had a work up and was discharged home after a 3 hour Troponin. Home Medications Current Medication List: was personally reviewed by me Laboratory Data Attestation: I reviewed the patient's lab results. Result diagrams: 10/29/19 19:20 10/29/19 19:20 Lab Results 10/29/19 10/29/19 10/29/19 Range/Units :: 19: WBC 10.72 (4.8-10.8) K/uL RBC 4.03 L (4.2-5.4) M/uL Hgb 12.9 (12.0-16.0) g/dL Hct 37.8 (37-47) % MCV 93.8 (80-100) fL MCH 32.0 (25-34) pg MCHC 34.1 (32-36) g/dL RDW Std Deviation 42.4 (36.4-46.3) fL RDW Coeff of Philip 12.4 (11.5-14.5) % Plt Count 319 (130-400) K/uL MPV 9.7 (7.4-10.4) fL Immature Gran % (Auto) 0.5 % Neut % (Auto) 77.6 % Lymph % (Auto) 13.7 % [place] % (Auto) 7.0 % Eos % (Auto) 1.1 % Baso % (Auto) 0.1 % Immature Gran # (Auto) 0.05 H (0.00-0.02) K/uL Neut # (Auto) 8.32 H (1.4-6.5) K/uL Lymph # (Auto) 1.47 (1.2-3.4) K/uL [place] # (Auto) 0.75 H (0.11-0.59) K/uL Eos # (Auto) 0.12 (0-0.5) K/uL Baso # (Auto) 0.01 (0-0.2) K/uL PT Cancelled INR Cancelled APTT Cancelled PTT Ratio Cancelled Activ Coag Time Kaolin (94-140) SECONDS D-Dimer (0-500) ug/L FEU Sodium 137 (136-145) mmol/L Potassium 3.8 (3.5-5.1) mmol/L Chloride 103 (98-107) mmol/L Carbon Dioxide 29 (21-32) mmol/L Anion Gap 5.0 (3-11) BUN 17 (7-18) mg/dl Creatinine 0.86 (0.6-1.2) mg/dl Est Cr Clr Drug Dosing Not Reportable Est GFR ( Amer) 89.4 Est GFR (Non-Af Amer) 77.1 BUN/Creatinine Ratio 19.7 (10-20) Glucose 134 H (70-99) mg/dl Calcium 9.1 (8.5-10.1) mg/dl Total Bilirubin 0.3 (0.2-1) mg/dl AST 14 L (15-37) U/L ALT 18 (12-78) U/L Alkaline Phosphatase 70 (45-117) U/L Troponin I 0.122 H* (0-0.045) ng/ml Total Protein 7.6 (6.4-8.2) gm/dl Albumin 4.0 (3.4-5.0) gm/dl Globulin 3.6 (2.5-4.0) gm/dl Albumin/Globulin Ratio 1.1 (0.9-2) 10/29/19 10/29/19 Range/Units 19:41 21:36 WBC (4.8-10.8) K/uL RBC (4.2-5.4) M/uL Hgb (12.0-16.0) g/dL Hct (37-47) % MCV (80-100) fL MCH (25-34) pg MCHC (32-36) g/dL RDW Std Deviation (36.4-46.3) fL RDW Coeff of Philip (11.5-14.5) % Plt Count (130-400) K/uL MPV (7.4-10.4) fL Immature Gran % (Auto) % Neut % (Auto) % Lymph % (Auto) % [place] % (Auto) % Eos % (Auto) % Baso % (Auto) % Immature Gran # (Auto) (0.00-0.02) K/uL Neut # (Auto) (1.4-6.5) K/uL Lymph # (Auto) (1.2-3.4) K/uL [place] # (Auto) (0.11-0.59) K/uL Eos # (Auto) (0-0.5) K/uL Baso # (Auto) (0-0.2) K/uL PT 10.3 INR 1.0 APTT 23.0 PTT Ratio 0.8 Activ Coag Time Kaolin 241 H (94-140) SECONDS D-Dimer < 190 (0-500) ug/L FEU Sodium (136-145) mmol/L Potassium (3.5-5.1) mmol/L Chloride (98-107) mmol/L Carbon Dioxide (21-32) mmol/L Anion Gap (3-11) BUN (7-18) mg/dl Creatinine (0.6-1.2) mg/dl Est Cr Clr Drug Dosing Est GFR ( Amer) Est GFR (Non-Af Amer) BUN/Creatinine Ratio (10-20) Glucose (70-99) mg/dl Calcium (8.5-10.1) mg/dl Total Bilirubin (0.2-1) mg/dl AST (15-37) U/L ALT (12-78) U/L Alkaline Phosphatase (45-117) U/L Troponin I (0-0.045) ng/ml Total Protein (6.4-8.2) gm/dl Albumin (3.4-5.0) gm/dl Globulin (2.5-4.0) gm/dl Albumin/Globulin Ratio (0.9-2) Imaging Data Radiologist's Impression: Radiology results as stated below per my review and the radiologist's interpretation: XR chest 1V portable CLINICAL HISTORY: Atypical chest pain COMPARISON STUDY: 10/12/2019 FINDINGS: The cardiac and mediastinal contours are normal. There is no evidence of focal pulmonary consolidation. There is no evidence of failure. No pleural e ffusions are visualized.[No pneumothorax is visualized IMPRESSION: No active disease in the chest. ACT 112: Negative or not required by law. Electronically signed by: Kobi Oh M.D. 10/29/2019 7:51 PM ECG Data Attestation: I personally reviewed and interpreted this ECG as follows: Indication: + chest pain Rate (beats per minute): 76 Rhythm: + normal sinus ECG ST segments: no ST elevation ECG Findings: + Other (Biphasic T-waves in lead 1 and AVL) Additional Comments: Repeat EKG on 10/29/2019: Normal sinus rhythm, rate of 71, persistent biphasic T-wave with slight ST depression in high lateral leads, and biphasic T-waves in V1, V2. No PVC, QRS is normal. 3rd EKG on 10/29/2019: Normal sinus rhythm, rate of 76, [address] elevation in lead 3, persistent ST depressions and TWI in lateral and septal leads, no PVC. Right sided EKG on 10/29/2019: Normal sinus rhythm, rate of 81, ST elevation in inferior leads, ST depressions in lead 1, AVL, V1, V2. No signs of right ventricular infarct. Blood Pressure Blood Pressure Findings: Elevated blood pressure Blood Pressure Disposition: further management by hospitalist ELVIS Goldman I did evaluate the patient as noted above. The patient is presenting with chest pain while on an exercise bike. She states she had the pain 3 weeks ago and wa s seen here and discharged home after evaluation. She had a negative cardiac stress test last week which was reported to be unremarkable. She stated there were no limitations to the stress test and she completed it fully. She does have a family history of CAD. Her father had stents placed in his 50s. The patient was placed on a continuous monitoring engineer. I did order and personally review the patient's 12-lead EKG as described above. Initial twelve-lead EKG demonstrates ST-T wave changes as noted above in the septal and high lateral leads. She also has Q waves inferiorly. She did state her pain started at 430. She had no ST elevations. She did have 3 sublingual nitroglycerin and aspirin prior to arrival. She stated that this did not give her any relief. I therefore treated her with IV fentanyl and Zofran. I did repeat another twelve- lead EKG which showed persistent ST changes without ST elevations. I did order and personally reviewed the images of the patient's chest x-ray as described above. Her chest x-ray does not show any widening of the mediastinum or pneumothorax. On reassessment the patient stated her chest pain improved down to a 2 but then it came back and is up to a 3. She was given a repeat dose of fentanyl IV and Zofran IV. I did order and review the patient's blood work as noted in the electronic medical record. CBC is unremarkable without significant leukocytosis or anemia. Electrolytes are unremarkable. Her troponin is elevated at 0.1. On reassessment she has persistent pain. I did speak to Dr. Thompson of cardiology and ordered a third EKG. Dr. Thompson recommended interventional cardiology. I did talk to Dr. Coombs and was given the third EKG during my conversation. The patient now has ST elevations in the inferior leads. I did go ahead and call a heart alert. I did order a fourth EKG which was a right-sided EKG. This now shows significant elevations in the inferior leads consistent with an inferior STEMI. There is no evidence of right ventricular infarct. I did treat her with IV normal saline and started her on a nitroglycerin drip. She was also given additional fentanyl. Dr. Coombs did evaluate the patient in the ED and immediately took her to the cardiac catheterization lab. I did discuss the case with the hospitalist and telehealth case manager. Impression & Plan ST elevation (STEMI) myocardial infarction Discharge Plan Visit Data Chief Complaint: Cardiac Assessment Stated Complaint: CHEST PAIN ED Provider: Sai Moura Discharge Problem: ST elevation (STEMI) myocardial infarction Patient Disposition: Being Evaluated by Hospitalist Discharge Instructions Interventions: ED Discharge Assessment Last Done: 10/29/19 21:00 The scribe's documentation has been prepared under my direction and personally reviewed by me in its entirety. I confirm that the note above accurately reflects all work, treatment, procedures, and medical decision making performed by me.
[2019-10-30] MEDS: ACETAMINOPHEN 325 MG TAB PO PRN ×3 (02:13→12:30)
[2019-10-30 04:23] LABS: Eosinophils # (auto) 0.02 K/uL (0-0.5); Eosinophils % (auto) 0.2 %; Hematocrit (blood only) 33.9 % (37-47); Hemoglobin 11.4 g/dL (12.0-16.0); Immature Granulocytes # (auto) 0.04 K/uL (0.00-0.02); Immature Granulocytes % (auto) 0.3 %; Lymphocytes # (auto) 1.13 K/uL (1.2-3.4); Lymphocytes % (auto) 8.8 %; Mean Corpuscular Hemoglobin 31.5 pg (25-34); Mean Corpuscular Hgb Conc 33.6 g/dL (32-36); Mean Corpuscular Volume 93.6 fL (80-100); Mean Platelet Volume 9.6 fL (7.4-10.4); Monocytes # (auto) 0.65 K/uL (0.11-0.59); Neutrophils # (auto) 11.04 K/uL (1.4-6.5); Neutrophils % (auto) 85.7 %; Platelet Count 310 K/uL (130-400); RDW Coefficient of Variation 12.4 % (11.5-14.5); RDW Standard Deviation 42.5 fL (36.4-46.3); Red Blood Count 3.62 M/uL (4.2-5.4); White Blood Count 12.88 K/uL (4.8-10.8)
[2019-10-30 04:41] LABS: BUN Creatinine Ratio 15.4 (10-20); Calcium 8.6 mg/dl (8.5-10.1); Creatinine Clr Calc Pharmacy 91.7 ml/min; Magnesium 2.2 mg/dl (1.8-2.4); Potassium 4.4 mmol/L (3.5-5.1)
[2019-10-30 04:55] LABS: Phosphorus 3.3 mg/dl (2.5-4.9); Troponin I 16.3 ng/ml (0-0.045)
[2019-10-30 06:07] LABS: Estimated Average Glucose 117 mg/dl; Hemoglobin A1C 5.7 % (4.5-5.6)
--- NOTE | 2019-10-30 08:15 | Cardiology Progress Note ---
Date of Service October 30, 2019 Assessment & Plan (1) ST elevation (STEMI) myocardial infarction: -- Post primary PCI with SMITHA to mid RCA 2. 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 Preserved LV function, inferior WMA 4. Mild mitral regurgitation 5. NSVT 6. Dyslipidemia Minimal residual chest pain. Few episodes of NSVT on telemetry. Hemodynamically stable. No access site complications. LV function preserved. No signs of heart failure on exam. Renal function stable. -- trend troponin until peak -- Continue DAPT with ASA/Ticagrelor -- Start metoprolol 12.5 mg this morning -- if BP tolerates increase to 25mg this evening. -- Start lisinopril 5mg today -- Continue high-intensity statin. From a cardiac standpoint OK with transfer to PCU. Up walking halls later today. Subjective Minimal residual dull ache in her chest and RT arm improved with tylenol. Few episodes of NSVT on tele overnight - longest ~12 beats No other new concerns Echo reviewed - EF55-60%. Basal inferior, inferoseptal hypokinesis. Mild MR. Normal CVP Review of Systems Review of Systems: All systems reviewed & are unremarkable except as noted in HPI & below Physical Exam Physical Exam: General: Comfortable, no acute distress Eyes: Sclerae anicteric, extraocular movements intact HENT: Oropharynx clear mucous membranes moist Lungs: Clear to auscultation bilaterally, no rhonchi or wheezes Cardiac: Regular rate and rhythm, no murmurs Abdomen: Soft, nontender, nondistended, positive bowel sounds. Neuro: Nonfocal Psych: Alert orient x3, normal affect and mood Extremities/Vascular: -- 2+ radial bilaterally. No hematoma. Distal sensation intact on right. -- 2 + DP pulses -- No edema Results & Data Vital Signs (Past 12 Hours) Vital Signs Temp Pulse Pulse Resp BP BP Pulse Ox 10/30/19 05:16 91 H 19 113/76 97 10/30/19 04:45 91 H 16 97/77 L 97 10/30/19 04:15 76 15 105/67 97 10/30/19 03:45 84 15 101/62 98 10/30/19 03:15 66 8 L 102/66 97 10/30/19 02:45 73 10 L 105/67 92 10/30/19 02:15 73 13 115/71 98 10/30/19 02:00 98.2 F 74 12 99 10/30/19 01:45 70 11 L 104/59 L 96 10/30/19 01:30 69 11 L 101/69 96 10/30/19 01:20 74 10/30/19 01:15 65 12 103/66 96 10/30/19 01:00 98.2 F 65 11 L 102/67 96 10/30/19 00:45 63 11 L 98/65 L 97 10/30/19 00:30 72 12 106/61 97 10/30/19 00:15 78 13 105/70 98 10/30/19 00:00 79 18 106/69 98 10/29/19 23:49 83 10/29/19 23:29 80 15 114/81 99 10/29/19 23:14 83 19 117/73 99 10/29/19 22:59 76 15 111/76 98 10/29/19 22:44 84 16 105/77 97 10/29/19 22:29 78 19 102/70 98 10/29/19 22:18 97.3 F L 80 18 117/63 98 10/29/19 22:15 80 17 117/63 10/29/19 22:06 78 10/29/19 20:40 81 17 121/79 98 10/29/19 20:31 93 H 23 99 10/29/19 20:30 88 18 138/85 99 10/29/19 20:23 81 20 127/101 H 98 10/29/19 20:16 86 18 100 10/29/19 20:15 84 14 127/101 H 100 PG Care Time/CCT Total # of Minutes Spent Total Time Spent with Patient: Total time spent is greater than 50% in coordination of care (as documented) at patient's floor/unit and/or counseling patient:
[2019-10-30] MEDS: ATORVASTATIN 40 MG TAB PO SCH (09:01)
[2019-10-30] MEDS: lisinopriL 5 MG TAB PO SCH (09:01)
[2019-10-30] MEDS: METOPROLOL TARTRATE 25 MG TAB PO SCH ×2 (09:02→20:09)
[2019-10-30] MEDS: ASPIRIN 81 MG ECTAB PO SCH (09:02)
[2019-10-30] MEDS: TICAGRELOR 90 MG TAB PO SCH ×2 (09:04→20:51)
--- NOTE | 2019-10-30 11:09 | Hospitalist Progress Note ---
Date of Service October 30, 2019 Assessment & Plan (1) ST elevation (STEMI) myocardial infarction: s/p SMITHA to 100% occluded RCA. cath performed by Dr Coombs. appreciate Dr Coombs' ongoing recs. mild CAD in LAD and Left Cx. continue asa, brilinta, BB, EUGENIA, high-intensity statin. follow troponin to peak. echo w/ expected wall motion abnormalities inferiorly but preserved EF. d/c ICU status. move to PCU. (2) CAD (coronary artery disease), [place] coronary artery: cont cardiac meds as noted above. will need cardiac rehab after d/c. counseled pt and on CAD, meds, etc at bedside today. (3) Hyperlipidemia: LDL elevated 160s. high-intensity statin. check TSH in am. a1c borderline high at 5.7%. informed patient of significance of this. (4) DVT prophylaxis: SCDs ambulation Subjective minimal/minor chest discomfort this am over right upper chest. no dyspnea. no nausea. ate good breakfast. no dizziness or lightheadedness. tele stable overnight. Review of Systems Constitutional: no fever Respiratory: no cough, no dyspnea and no dyspnea on exertion Cardiovascular: as per Subjective / HPI; no radiating jaw, neck or arm pain, no dyspnea at rest, no dyspnea on exertion, no orthopnea and no paroxysmal nocturnal dyspnea Gastrointestinal: no abdominal pain, no nausea and no vomiting Physical Exam Constitutional: well developed and well nourished; no acute distress ENMT: external ear and nose normal, oropharynx normal Respiratory: normal respiratory effort, lungs clear to auscultation Cardiovascular: Rate/Rhythm: regular rate and regular rhythm Heart Sounds: normal S1 and normal S2; no murmur Vessels: posterior tibial pulses present and dorsalis pedis pulses present; no JVD Extremities: no edema Gastrointestinal (Abdomen): normal bowel sounds, soft, nontender, no hepatosplenomegaly Skin: right radial artery/wrist -- no hematoma Psychiatric: A+Ox3, euthymic affect Results & Data Vital Signs (Past 12 Hours) Vital Signs Temp Pulse Resp BP Pulse Ox 10/30/19 08:00 67 10/30/19 07:33 36.5 C 73 26 H 104/62 10/30/19 06:33 66 11 L 101/68 97 10/30/19 05:16 91 H 19 113/76 97 10/30/19 04:45 91 H 16 97/77 L 97 10/30/19 04:15 76 15 105/67 97 10/30/19 03:45 84 15 101/62 98 10/30/19 03:15 66 8 L 102/66 97 10/30/19 02:45 73 10 L 105/67 92 10/30/19 02:15 73 13 115/71 98 10/30/19 02:00 36.8 C 74 12 99 10/30/19 01:45 70 11 L 104/59 L 96 10/30/19 01:30 69 11 L 101/69 96 10/30/19 01:20 74 10/30/19 01:15 65 12 103/66 96 10/30/19 01:00 36.8 C 65 11 L 102/67 96 10/30/19 00:45 63 11 L 98/65 L 97 10/30/19 00:30 72 12 106/61 97 10/30/19 00:15 78 13 105/70 98 10/30/19 00:00 79 18 106/69 98 10/29/19 23:49 83 10/29/19 23:29 80 15 114/81 99 10/29/19 23:14 83 19 117/73 99 Laboratory Results Laboratory Results - last 24 hr 10/29/19 10/29/19 10/29/19 19:20 19:20 19:20 WBC 10.72 RBC 4.03 L Hgb 12.9 Hct 37.8 MCV 93.8 MCH 32.0 MCHC 34.1 RDW Std Deviation 42.4 RDW Coeff of Philip 12.4 Plt Count 319 MPV 9.7 Immature Gran % (Auto) 0.5 Neut % (Auto) 77.6 Lymph % (Auto) 13.7 [place] % (Auto) 7.0 Eos % (Auto) 1.1 Baso % (Auto) 0.1 Immature Gran # (Auto) 0.05 H Neut # (Auto) 8.32 H Lymph # (Auto) 1.47 [place] # (Auto) 0.75 H Eos # (Auto) 0.12 Baso # (Auto) 0.01 PT Cancelled INR Cancelled APTT Cancelled PTT Ratio Cancelled Activ Coag Time Kaolin D-Dimer Sodium 137 Potassium 3.8 Chloride 103 Carbon Dioxide 29 Anion Gap 5.0 BUN 17 Creatinine 0.86 Est Cr Clr Drug Dosing Not Reportable Est GFR ( Amer) 89.4 Est GFR (Non-Af Amer) 77.1 BUN/Creatinine Ratio 19.7 Glucose 134 H POC Glucose Estimat Average Glucose Hemoglobin A1c Calcium 9.1 Phosphorus Magnesium Total Bilirubin 0.3 AST 14 L ALT 18 Alkaline Phosphatase 70 Troponin I 0.122 H* Total Protein 7.6 Albumin 4.0 Globulin 3.6 Albumin/Globulin Ratio 1.1 Triglycerides Cholesterol LDL Cholesterol, Calc VLDL Cholesterol, Calc HDL Cholesterol Cholesterol/HDL Ratio Nasal Screen MRSA (PCR) 10/29/19 10/29/19 10/29/19 19:41 21:36 22:20 WBC RBC Hgb Hct MCV MCH MCHC RDW Std Deviation RDW Coeff of Philip Plt Count MPV Immature Gran % (Auto) Neut % (Auto) Lymph % (Auto) [place] % (Auto) Eos % (Auto) Baso % (Auto) Immature Gran # (Auto) Neut # (Auto) Lymph # (Auto) [place] # (Auto) Eos # (Auto) Baso # (Auto) PT 10.3 INR 1.0 APTT 23.0 PTT Ratio 0.8 Activ Coag Time Kaolin 241 H D-Dimer < 190 Sodium Potassium Chloride Carbon Dioxide Anion Gap BUN Creatinine Est Cr Clr Drug Dosing Est GFR ( Amer) Est GFR (Non-Af Amer) BUN/Creatinine Ratio Glucose POC Glucose Estimat Average Glucose Hemoglobin A1c Calcium Phosphorus Magnesium Total Bilirubin AST ALT Alkaline Phosphatase Troponin I Total Protein Albumin Globulin Albumin/Globulin Ratio Triglycerides Cholesterol LDL Cholesterol, Calc VLDL Cholesterol, Calc HDL Cholesterol Cholesterol/HDL Ratio Nasal Screen MRSA (PCR) Negative 10/29/19 10/30/19 10/30/19 22:23 03:56 03:56 WBC 12.88 H RBC 3.62 L Hgb 11.4 L Hct 33.9 L MCV 93.6 MCH 31.5 MCHC 33.6 RDW Std Deviation 42.5 RDW Coeff of Philip 12.4 Plt Count 310 MPV 9.6 Immature Gran % (Auto) 0.3 Neut % (Auto) 85.7 Lymph % (Auto) 8.8 [place] % (Auto) 5.0 Eos % (Auto) 0.2 Baso % (Auto) 0.0 Immature Gran # (Auto) 0.04 H Neut # (Auto) 11.04 H Lymph # (Auto) 1.13 L [place] # (Auto) 0.65 H Eos # (Auto) 0.02 Baso # (Auto) 0.00 PT INR APTT PTT Ratio Activ Coag Time Kaolin D-Dimer Sodium 135 L Potassium 4.4 D Chloride 105 Carbon Dioxide 27 Anion Gap 3.0 BUN 11 Creatinine 0.73 Est Cr Clr Drug Dosing 91.7 Est GFR ( Amer) 109.0 Est GFR (Non-Af Amer) 94.0 BUN/Creatinine Ratio 15.4 Glucose 108 H POC Glucose 138 H Estimat Average Glucose Hemoglobin A1c Calcium 8.6 Phosphorus 3.3 Magnesium 2.2 Total Bilirubin AST ALT Alkaline Phosphatase Troponin I 16.300 H* Total Protein Albumin Globulin Albumin/Globulin Ratio Triglycerides 146 Cholesterol 241 H LDL Cholesterol, Calc 169 VLDL Cholesterol, Calc 29 HDL Cholesterol 43 Cholesterol/HDL Ratio 6 Nasal Screen MRSA (PCR) 10/30/19 10/30/19 03:56 10:17 WBC RBC Hgb Hct MCV MCH MCHC RDW Std Deviation RDW Coeff of Philip Plt Count MPV Immature Gran % (Auto) Neut % (Auto) Lymph % (Auto) [place] % (Auto) Eos % (Auto) Baso % (Auto) Immature Gran # (Auto) Neut # (Auto) Lymph # (Auto) [place] # (Auto) Eos # (Auto) Baso # (Auto) PT INR APTT PTT Ratio Activ Coag Time Kaolin D-Dimer Sodium Potassium Chloride Carbon Dioxide Anion Gap BUN Creatinine Est Cr Clr Drug Dosing Est GFR ( Amer) Est GFR (Non-Af Amer) BUN/Creatinine Ratio Glucose POC Glucose Estimat Average Glucose 117 Hemoglobin A1c 5.7 H Calcium Phosphorus Magnesium Total Bilirubin AST ALT Alkaline Phosphatase Troponin I Pending Total Protein Albumin Globulin Albumin/Globulin Ratio Triglycerides Cholesterol LDL Cholesterol, Calc VLDL Cholesterol, Calc HDL Cholesterol Cholesterol/HDL Ratio Nasal Screen MRSA (PCR) PG Care Time/CCT Total # of Minutes Spent Total Time Spent with Patient: Total time spent is greater than 50% in coordination of care (as documented) at patient's floor/unit and/or counseling patient:
--- NOTE | 2019-10-30 16:44 | Electrocardiogram Report ---
Test Reason : Blood Pressure : / mmHG Vent. Rate : 076 BPM Atrial Rate : 076 BPM P-R Int : 200 ms QRS Dur : 084 ms QT Int : 376 ms P-R-T Axes : 077 039 084 degrees QTc Int : 423 ms Normal sinus rhythm Possible Inferior infarct , age undetermined Abnormal ECG When compared with ECG of 12-OCT-2019 15:01, Borderline criteria for Inferior infarct are now Present Non-specific change in ST segment in Lateral leads Confirmed by Luis Zee ([id number]) on 10/30/2019 4:44:48 PM Referred By: REFERRED SELF Confirmed By:Luis Zee
--- NOTE | 2019-10-30 16:46 | Electrocardiogram Report ---
Test Reason : Blood Pressure : / mmHG Vent. Rate : 078 BPM Atrial Rate : 078 BPM P-R Int : 192 ms QRS Dur : 084 ms QT Int : 380 ms P-R-T Axes : 073 036 079 degrees QTc Int : 433 ms Normal sinus rhythm Possible Inferior infarct (cited on or before 29-OCT-2019) Abnormal ECG When compared with ECG of 29-OCT-2019 19:52, (unconfirmed) No significant change was found Confirmed by Luis Zee ([id number]) on 10/30/2019 4:45:38 PM Referred By: REFERRED SELF Confirmed By:Luis Zee
--- NOTE | 2019-10-30 16:46 | Electrocardiogram Report ---
Test Reason : Blood Pressure : / mmHG Vent. Rate : 071 BPM Atrial Rate : 071 BPM P-R Int : 194 ms QRS Dur : 086 ms QT Int : 388 ms P-R-T Axes : 072 034 066 degrees QTc Int : 421 ms Normal sinus rhythm Possible Inferior infarct (cited on or before 29-OCT-2019) Abnormal ECG When compared with ECG of 29-OCT-2019 19:14, (unconfirmed) No significant change was found Confirmed by Luis Zee ([id number]) on 10/30/2019 4:45:26 PM Referred By: REFERRED SELF Confirmed By:Luis Zee
--- NOTE | 2019-10-30 16:47 | Electrocardiogram Report ---
Test Reason : Blood Pressure : / mmHG Vent. Rate : 081 BPM Atrial Rate : 081 BPM P-R Int : 194 ms QRS Dur : 086 ms QT Int : 366 ms P-R-T Axes : 067 032 086 degrees QTc Int : 425 ms Age and gender specific ECG analysis Normal sinus rhythm Inferior infarct (cited on or before 29-OCT-2019) Possible Anterolateral infarct , new Consider right ventricular involvement in acute inferior infarct Abnormal ECG When compared with ECG of 29-OCT-2019 20:18, (unconfirmed) Acute Anterolateral infarct is now Present Confirmed by Luis Zee ([id number]) on 10/30/2019 4:46:33 PM Referred By: REFERRED SELF Confirmed By:Luis Zee
--- NOTE | 2019-10-30 16:50 | Electrocardiogram Report ---
Test Reason : Blood Pressure : / mmHG Vent. Rate : 082 BPM Atrial Rate : 082 BPM P-R Int : 160 ms QRS Dur : 082 ms QT Int : 396 ms P-R-T Axes : 062 000 006 degrees QTc Int : 462 ms Poor data quality, interpretation may be adversely affected Normal sinus rhythm Inferior infarct (cited on or before 29-OCT-2019) Abnormal ECG When compared with ECG of 29-OCT-2019 20:29, (unconfirmed) Borderline criteria for Anterior infarct are no longer Present Borderline criteria for Anterolateral infarct are no longer Present Serial changes of evolving Inferior infarct Present Confirmed by Luis Zee ([id number]) on 10/30/2019 4:49:55 PM Referred By: REFERRED SELF Confirmed By:Luis Zee
[2019-10-31 06:48] LABS: Hematocrit (blood only) 37.7 % (37-47); Hemoglobin 12.7 g/dL (12.0-16.0); Mean Corpuscular Hgb Conc 33.7 g/dL (32-36); Mean Platelet Volume 9.7 fL (7.4-10.4); Platelet Count 282 K/uL (130-400); RDW Coefficient of Variation 12.7 % (11.5-14.5); Red Blood Count 3.97 M/uL (4.2-5.4); White Blood Count 8.62 K/uL (4.8-10.8)
[2019-10-31 07:18] LABS: BUN Creatinine Ratio 16.5 (10-20); Calcium 8.8 mg/dl (8.5-10.1); Creatinine Clr Calc Pharmacy 76.4 ml/min; Est GFR (African American) 88.2; Est GFR (Non-African American) 76.1; Potassium 4.3 mmol/L (3.5-5.1)
[2019-10-31 07:28] LABS: Thyroid Stimulating Hormone 4.44 uIu/ml (0.300-4.500)
[2019-10-31] MEDS: lisinopriL 5 MG TAB PO SCH (08:07)
[2019-10-31] MEDS: TICAGRELOR 90 MG TAB PO SCH (08:07)
[2019-10-31] MEDS: ASPIRIN 81 MG ECTAB PO SCH (08:07)
[2019-10-31] MEDS: METOPROLOL TARTRATE 25 MG TAB PO SCH (08:07)
[2019-10-31] MEDS: ATORVASTATIN 40 MG TAB PO SCH (08:07)
--- NOTE | 2019-10-31 08:40 | Cardiology Progress Note ---
Date of Service October 31, 2019 Assessment & Plan (1) ST elevation (STEMI) myocardial infarction: -- Post primary PCI with SMITHA to mid RCA 2. 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 Preserved LV function, inferior WMA 4. Mild mitral regurgitation 5. NSVT 6. Dyslipidemia Chest pain free. Troponin peaked. Electrically stable. Borderline BP on beta-[place], EUGENIA Hgb, Renal function stable. From a cardiac standpoint OK with discharge this morning. Home on: -- DAPT with ASA/Ticagrelor -- Continue metoprolol 12.5 mg BID -- OK to hold lisinopril in setting of borderline BPs and can retry as an outpatient. -- Continue high-intensity statin -- Cardiac rehab pending Subjective Feeling well. No chest pain. Anxious about new diagnosis. Tele reviewed -- no events Review of Systems Review of Systems: All systems reviewed & are unremarkable except as noted in HPI & below Physical Exam Physical Exam: General: Comfortable, no acute distress Eyes: Sclerae anicteric, extraocular movements intact Lungs: Clear to auscultation bilaterally Cardiac: Regular rate and rhythm, no murmurs Abdomen: Soft, nontender, nondistended, positive bowel sounds. Neuro: Nonfocal Psych: Alert orient x3, normal affect and mood Extremities/Vascular: -- 2+ radial bilaterally, mild ecchymosis -- No edema Results & Data Vital Signs (Past 12 Hours) Vital Signs Temp Pulse Pulse Resp BP Pulse Ox 10/31/19 07:49 97.3 F L 63 19 94/60 L 99 10/31/19 04:22 97.7 F 68 16 90/60 L 97 10/30/19 23:37 98.1 F 65 18 95/52 L 97 10/30/19 23:18 64 PG Care Time/CCT Total # of Minutes Spent Total Time Spent with Patient: Total time spent is greater than 50% in coordination of care (as documented) at patient's floor/unit and/or counseling patient:
[2019-10-31] MEDS: ACETAMINOPHEN 325 MG TAB PO PRN (09:22)
--- NOTE | 2019-10-31 11:48 | Discharge Summary ---
Date of Service October 31, 2019 Discharge Exam Constitutional well developed and well nourished; no acute distress ENMT external ear and nose normal, oropharynx normal Respiratory normal respiratory effort, lungs clear to auscultation Cardiovascular Rate/Rhythm: regular rate and regular rhythm Heart Sounds: normal S1 and normal S2; no murmur Vessels: posterior tibial pulses present and dorsalis pedis pulses present; no JVD Extremities: no edema Gastrointestinal (Abdomen) normal bowel sounds, soft, nontender, no hepatosplenomegaly Psychiatric A+Ox3, euthymic affect Discharge Data Allergies Allergy/AdvReac Type Severity Reaction Status Date / Time No Known Allergies Allergy Verified 10/29/19 20:38 Consultations 10/29/19 20:53 ED Decision to Admit Stat 10/29/19 22:06 Consult Case Management - Discharge Planning Routine Consult Polystyrene Molding Machine Tender Routine 10/29/19 22:10 Consult Cardiac Rehabilitation Routine Procedures Performed Operation Date: 10/29/19 20:00 Actual Procedures p Drug Eluting Stent SGl Vessel - Gerardo Coombs MD s Cath, Left with Cors and Vent - Gerardo Coombs MD s Cineradiography w/Routine Exam - Gerardo Coombs MD s POBA SGL Vessel - Gerardo Coombs MD Ordered Studies 10/29/19 20:41 CL Cath Imgs for PACS use only Stat Hospital Course (1) ST elevation (STEMI) myocardial infarction: s/p SMITHA to 100% occluded RCA. cath performed by Dr Coombs. appreciate Dr Coombs' ongoing recs. mild CAD in LAD and Left Cx. continue asa, brilinta, BB, EUGENIA, high-intensity statin. follow troponin to peak. echo w/ expected wall motion abnormalities inferiorly but preserved EF. d/c ICU status. move to PCU. (2) CAD (coronary artery disease), tangirnaq coronary artery: cont cardiac meds as noted above. will need cardiac rehab after d/c. counseled pt and on CAD, meds, etc at bedside today. (3) Hyperlipidemia: LDL elevated 160s. high-intensity statin. check TSH in am. a1c borderline high at 5.7%. informed patient of significance of this. (4) DVT prophylaxis: SCDs ambulation Discharge Plan Discharge Items Patient Disposition: Home - Self-Care Reason For Visit: Heart Attack Discharge Diagnosis: Heart Attack due to blocked right coronary artery - placement of stent by Dr Coobms Activity: As commented below Activity Comment: no strenuous activities until cleared by Dr Coombs Sexual Activity: Wait until after follow-up appointment Exercise/Sports: Wait until after follow-up appointment Non-emergency contact: Primary Care Provider and Ticket Sales Agent Call non-emergency contact if: you have any medication questions, your symptoms worsen, your pain is not controlled, your pain is worsening, your pain is unusual for you and your pain is concerning for you Follow-up/Referrals: Gerardo Coombs MD [Physician] - 11/13/19 2:15 pm (Please, follow up at [facility] Cardiology Office with Dr. Jaspreet Coombs on November 13 at 2:30 pm (arrive 2:15 pm). *If you need to change this appointment, call the office at [phone].) Richard Seymour MD [Primary Care Provider] - Diet: Heart Healthy Add Attending Provider Instructions: You presented with chest pain and you were found to have a heart attack. You were taken immediately to the cardiac catheterization lab by Dr Renato Coombs and he found a 100% occluded/blocked right coronary artery. Dr Coombs placed a stent across this artery relieving the blockage. The other 2 main coronary vessels have about 30% plaque build-up (mild). Following the heart attack we performed an echocardiogram of your heart and your heart function is good. Your blood work remained stable. Recommendations - 1. medications - * metoprolol 12.5mg twice daily for your heart * aspirin 81mg once daily every day * brilinta 90mg twice daily every day to keep your stent open * lipitor (atorvastatin) 80mg once daily every day for high cholesterol * nitroglycerin as needed for chest pain (please keep with you at all times) 2. activity restrictions following the heart catheterization - ACTIVITY RECOMMENDATIONS: It is common to feel weak and fatigue for a few days. * Do not drive or operate any motorized equipment for the next three days. * Limit stair usage (2 or 3 trips a day only) for the next three days. * Do not lift anything heavier than 10 pounds for the next three days especially with the right arm. * Do not engage in vigorous exercise or any sports until cleared by Dr Coombs. * You may shower the day after your procedure, but do not immerse the area for three days. Cleanse the site gently with soap and water. SPECIAL CARE INSTRUCTIONS: * You may replace the pressure dressing or band-aid the morning after the procedure. * After your procedure, it is normal to have a small bruise or small lump at the site. Examine your site daily for any change in the bruise or lump, redness, swelling, drainage or numbness. Notify your doctor if any change. BLEEDING: * If there is a small amount of bleeding at the site, lie down and apply firm pressure with a clean cloth for ten minutes. When the bleeding stops, lie quietly keeping the procedure limb straight for six hours. Notify your doctor as soon as possible. * If the bleeding does not stop after ten minutes or if there is a large amount of bleeding or spurting, call 911 immediately. Continue to lie down and hold firm pressure until help arrives. SKIN IRRITATION: * You may experience some redness and/or swelling in the area where radiation was administered. If any skin irritation occurs, please contact your family physician. 3. additional post-heart attack instructions - Home Care: * Take your medications exactly as directed. Don't skip doses. * Remember that recovery after a heart attack takes time. Plan to rest for at lease 4-8 weeks while you recover. Then return to normal activity when your doctor says it's okay. * Ask your doctor about joining a heart rehabilitation program. * Tell your doctor if you are feeling depressed. Feelings of sadness are common after a heart attack, but it is important that you speak to someone if you are feeling overwhelmed by these feelings. * If you are having chest pain, call 911 for an ambulance. Do NOT drive yourself to the hospital. * Ask your family members to learn CPR. * Learn to take your own blood pressure and pulse. Keep a record of your results. Ask your doctor when you should seek emergency medical attention. He or she will tell you which blood pressure reading is dangerous. Lifestyle Changes: * Maintain a healthy weight. Get help to lose any extra pounds. * Cut back on salt. * Limit canned, dried, packaged, and fast foods. * Don't add salt to your food. * Season foods with herbs instead of salt when you cook. * Break the smoking habit. Enroll in a stop-smoking program to improve your chances of success. * Limit fatty foods. * Ask your doctor about having your lipid levels checked regularly. * Build up your activity according to your doctor's recommendation. * Ask your doctor when it's okay to resume sexual activity. * Tell your doctor about any erectile dysfunction (ED) medication you are taking. Some ED medications are not safe if you take certain heart medications. * Try to manage stress. 4. other recommendations - * please stop your meloxicam for now * do not take wcnx-egs-ooebarc anti-inflammatory pills unless ok with Dr Coombs; this includes motrin, ibuprofen, naprosyn, etc * OK to take tylenol as needed for headache, aches and pains, etc * please have your family doctor check your hemoglobin a1c test 1-2x's each year; it is a means of screening for early pre-Diabetes or Diabetes * your level was 5.7% which is at the top of the normal range (almost in pre- Diabetes range) * of note - we checked your TSH (thyroid level) and this was normal at 4 5. follow-up -- see separate section 6. Return to [facility] if -- * you have concerns of worsening swelling, redness, etc from the cath site on the right wrist * you have to use nitroglycerin tablets * you have fevers over 100.5 degrees * you have recurrent chest pains or shortness of breath * any other concerns Pending Studies at Discharge: No Stand-Alone Forms: My [facility], Smoking Cessation Medications and DC Order Prescriptions: New Brilinta 90 mg Tablet 90 mg PO BID Qty: 60 RF: 11 metoprolol tartrate 25 mg Tablet 12.5 mg PO BID Qty: 60 RF: 11 nitroglycerin [Nitrostat] 0.4 mg Tablet, Sublingual 0.4 mg sublingual PRN PRN (Reason: chest pain) Qty: 1 RF: 0 aspirin [Ecotrin Low Strength] 81 mg Tablet,Delayed Release (Dr/Ec) 81 mg PO QAM Qty: 90 RF: 3 atorvastatin [Lipitor] 80 mg tablet 80 mg PO DAILY Qty: 30 RF: 11 Continued omega 7-itl-mto-fish oil [Fish Oil] 1,000 mg (120 mg-180 mg) Capsule 1 cap PO BID RF: 0 Allergy Relief (cetirizine) 10 mg Capsule 10 mg PO DAILY PRN (Reason: Allergy Symptoms) RF: 0 diclofenac sodium 1 % gel 2 g TOPICAL QID PRN (Reason: Pain) RF: 0 Discontinued niacin 250 mg Tablet 250 mg PO BID RF: 0 meloxicam 15 mg tablet 15 mg PO DAILY PRN (Reason: Pain) RF: 0 Discharge Orders: Discharge Order (Routine); Ordered 10/31/19 Ordered By: Manfred Soni Admission Data Admit Date/Time: 10/29/19 22:06 Attending Provider: Manfred Soni Admit Provider: Gerardo Coombs Primary Care Provider: Richard Seymour Other Providers: Stalin Jacob ; Cole Winchester
== END 2019-10-31 13:00 | disposition home or self-care (01) | DRG 247 ==
LOC: ED 19:01 → 1E 21:00 → SUATTDRO 22:06 → 1E 22:06 → 2E 10-30 11:09

== ENCOUNTER 2020-04-07 10:50 | Inpatient (IN) ==
[2020-04-07 11:24] LABS: Basophils # (auto) 0.01 K/uL (0-0.2); Basophils % (auto) 0.2 %; Eosinophils # (auto) 0.13 K/uL (0-0.5); Eosinophils % (auto) 2.1 %; Hematocrit (blood only) 42.5 % (37-47); Hemoglobin 14.4 g/dL (12.0-16.0); Immature Granulocytes # (auto) 0.01 K/uL (0.00-0.02); Immature Granulocytes % (auto) 0.2 %; Lymphocytes # (auto) 1.21 K/uL (1.2-3.4); Lymphocytes % (auto) 19.1 %; Mean Corpuscular Hgb Conc 33.9 g/dL (32-36); Mean Corpuscular Volume 94.4 fL (80-100); Mean Platelet Volume 10.2 fL (7.4-10.4); Monocytes # (auto) 0.61 K/uL (0.11-0.59); Monocytes % (auto) 9.6 %; Neutrophils # (auto) 4.36 K/uL (1.4-6.5); Neutrophils % (auto) 68.8 %; Platelet Count 317 K/uL (130-400); RDW Coefficient of Variation 12.9 % (11.5-14.5); RDW Standard Deviation 44.1 fL (36.4-46.3); White Blood Count 6.33 K/uL (4.8-10.8)
--- NOTE | 2020-04-07 11:27 | XRay Report ---
XR chest 1V portable CLINICAL HISTORY: Atypical chest pain COMPARISON STUDY: 10/29/2019 FINDINGS: The cardiac and mediastinal contours are normal. There is no evidence of focal pulmonary co nsolidation. There is no evidence of failure. No pleural effusions are visualized.[ IMPRESSION: No active disease in the chest. ACT 112: Negative or not required by law. Electronically signed by: Kobi Oh M.D. 04/07/2020 11:26 AM
[2020-04-07 11:37] LABS: Partial Thromboplastin Ratio 0.9; Partial Thromboplastin Time 26.3 Seconds (21.0-31.0); Prothrombin Time 10.6 Seconds (9.0-12.0)
[2020-04-07 11:54] LABS: Albumin Level 4.9 gm/dl (3.4-5.0); BUN Creatinine Ratio 11.6 (10-20); Calcium 10.3 mg/dl (8.5-10.1); Creatinine Clr Calc Pharmacy 77.4 ml/min; Est GFR (African American) 87.5; Est GFR (Non-African American) 75.5; Potassium 4.1 mmol/L (3.5-5.1)
[2020-04-07] MEDS ORDERED: ASPIRIN 81 MG CHEW PO STA (12:12)
[2020-04-07] MEDS ORDERED: NITROGLYCERIN SL 0.4 MG/TAB TAB SL STA ×2 (12:12→13:42)
[2020-04-07 12:38] LABS: D Dimer < 190 ug/L FEU (0-500)
[2020-04-07 12:48] LABS: Albumin Globulin Ratio 1.2 (0.9-2); Bilirubin,Total 0.6 mg/dl (0.2-1); Total Protein 8.9 gm/dl (6.4-8.2); Troponin I 0.063 ng/ml (0-0.045)
--- NOTE | 2020-04-07 12:57 | Emergency Department Note ---
Impression & Plan Non-ST elevation IA (NSTEMI), Chest pain ED Provider Note Provider: Rahul Thomas MD DATE OF SERVICE: 04/07/2020 CHIEF COMPLAINT: Shoulder and neck discomfort HISTORY OF PRESENT ILLNESS: Patient is a 54-year-old female with a history of CAD stents placed in October, presenting today with a complaint of 3 days of some right and right collarbone discomfort this morning radiating to the right side of her neck. Denies any new trauma. Patient states she has been exercising and not having significant worsening of symptoms with this. On Sunday with associated back pain likely muscular. Denies any chest pain or shortness of breath. Denies any abdominal symptoms or nausea. She denies any headache or midline neck pain. Does endorse over the past month a bit of tingling in the right hand that she thinks this is a pinched nerve. States compliance with her medications including aspirin and Brilinta. Patient has not tried nitroglycerin at home. Patient has been using some Biofreeze and tried some Tylenol earlier with minimal improvement of symptoms. REVIEW OF SYSTEMS: A total of 10 review of systems was obtained and negative except as stated above in the HPI. 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 NECK: Trachea midline. Supple. ENT: Mucous membranes pink and moist. LUNGS: Airway patent. No retractions. Breath sounds clear with good air entry bilaterally. HEART: Regular rate and rhythm. No chest wall tenderness ABDOMEN: Soft and non-tender, without guarding or rebound. SKIN: Acyanotic, warm, dry, without rashes EXTREMITIES: Without swelling, tenderness or deformity NEUROLOGICAL: Moving all extremities. No aphasia. No facial droop or slurred speech. Patient does endorse a little bit of tingling in her right 4 fingers but is intact sensation to gross touch. Ambulatory. EK bpm sinus bradycardia. No PVCs. No acute ST segment elevation. Old inferior T wave inversions are notable. Compared to October 292019 do not see significant changes. CONTINUOUS CARDIAC MONITORING: was ordered and showed a heart rate of 55 bpm in sinus bradycardia Second EKG at 1:35 PM shows 60 beats per normal sinus rhythm no PVC. No acute ST segment elevation. No significant change compared to the earlier EKG. Patient's hypertension was referred to the hospitalist HOSPITAL COURSE: 1200 Patient was first seen and H&P performed. 1257 Patient reassessed and updated. Patient was minimally improved in symptoms. Discussed plan to discuss with cardiology. [address] Coombs of interventional cardiology is this is his patient. Discussed patient's history and physical as well as laboratory findings. He states that if the patient had a 3-hour delta troponin that was reassuring/flat or downtrending she could go home. 1332 patient with symptoms and onset of diffuse anterior chest pressure now with worsened radiation into her right neck. Patient Dors some nausea. Second EKG obtained and given Zofran and nitroglycerin. Complained of headache after nitroglycerin with improvement of pain. 1411 I have discussed the patient with Dr. Livingston the medicine service for further inpatient evaluation. Patient's laboratory studies and imaging reviewed. Differential includes Cardiac ischemia, aortic dissection, pulmonary embolism, pneumothorax, pneumonia, pericarditis, myocarditis, esophageal rupture, GERD, cholecystitis, pancreatitis, musculoskeletal, as well as other pathologies. IMPRESSION/MEDICAL DECISION MAKING: Patient presents with atypical chest pain type symptoms. No recent travel. No shortness of breath. No abdominal symptoms. Patient's in his right hand is prior to onset of discomfort in her shoulder right side of her neck and jaw and seems likely more peripheral neuropathy. Doubt acute CVA. Do not feel need to head CT at this time. No significant trauma reported. No exertional symptoms reported and the patient states she did not have significant worsening of her symptoms with exertion last night while at a spinning class. Some lifting on Sunday she thought may have caused a little bit of shoulder discomfort but her symptoms are not really reproducible on exam at this time with palpation over the areas of the right shoulder of the right neck jaw. EKG without significant changes. Initial troponin is noted to be mildly elevated. Unsure if this is a chronic level. Patient did get a full dose of aspirin and did receive nitroglycerin with minimal change of symptoms. 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 Coombs. Delta troponin will be completed. The dimer is negative. I doubt this represents dissection. While the plan for a delta troponin was being pursued the patient had sudden onset of 6 out of 10 anterior chest pressure (no central chest) which was new with worsening pain to her right shoulder and neck. Nausea as well at this time. Repeat EKG without significant change. Troponin was ordered immediately and given nitroglycerin and Zofran to help with symptoms. Development of a headache but chest pressure sensation improved. Second troponin fairly similar to the first. Given the recurrent nature of this especially while at rest discussed the patient and plan further observation in the hospital is recommended. Patient was somewhat scared and anxious but agreed with this plan. The hospitalist team was alerted. DIAGNOSIS: NSTEMI, chest pain DISPOSITION: Hospitalist will evaluate Patient was agreeable with this plan. Past Med/Surg History Medical History (Updated 04/07/20 @ 20:09 by Rahul Thomas M.D.) CAD (coronary artery disease), [place] coronary artery Hyperlipidemia ST elevation (STEMI) myocardial infarction (Resolved ~10/2019) Surgical History H/O: hysterectomy S/P drug eluting coronary stent placement S/P wisdom tooth extraction Social History (Updated 11/04/19 @ 14:09 by Isi Vega) Preferred Language: Jamaican Communication Ability: Effective Visual Impairment: No Limitations Hearing Ability: Normal Office Administration Required: No Beliefs That Will Affect Care: None marital status: Current Living Situation: Spouse current occupational status: employed current occupation: works for [employer] Other Information That Helps Us Care for You: No Feels Safe at Home: Yes Safety Concerns: Feels Safe At This Time Smoking Status: Never smoker Second Hand Exposure: No ; Hx Alcohol Use: Yes Alcohol type: wine Alcohol Intake Frequency: Weekly Hx Substance Use: No Childhood Exposure to Second-Hand Smoke: No Dental Care, Regularly: Yes Physical Activity Frequency: 3-4 Times per Week Allergies Allergies Allergy/AdvReac Type Severity Reaction Status Date / Time No Known Drug Allergies Allergy Verified 04/07/20 11:27 Home Meds Home Medications Medication Instructions Recorded Confirmed Allergy Relief (cetirizine) 10 mg PO DAILY PRN 10/12/19 04/07/20 omega 3-ams-ram-fish oil [Fish Oil] 1 cap PO BID 10/12/19 04/07/20 diclofenac sodium 2 g TOPICAL QID PRN 10/29/19 04/07/20 Previous Rx's Medication Instructions Recorded aspirin [Ecotrin Low Strength] 81 mg PO QAM #90 tab 10/31/19 ticagrelor [Brilinta] 90 mg PO BID #60 tab 10/31/19 coenzyme Q10 100 mg capsule 100 mg PO DAILY #30 cap 11/13/19 nitroglycerin 0.4 mg sublingual 0.4 mg SUBLINGUAL PRN PRN #1 btl 12/16/19 tablet rosuvastatin 20 mg tablet 20 mg PO DAILY #90 tab 04/02/20 Results & Data (ED) Vital Signs Vital Signs - 24 hr 04/07/20 10:57 04/07/20 11:07 04/07/20 11:09 Temperature 36.7 C Temperature Source Oral Pulse Rate 54 L 68 69 Pulse Rate from SpO2 Sensor 66 64 Respiratory Rate 20 17 20 Respiratory Effort / Characteristics Non-Labored Spontaneous Respiratory Depth Normal Blood Pressure 126/82 126/82 Blood Pressure Mean 96 94 Pulse Oximetry 100 100 Oxygen Delivery Method Room Air Sepsis Recent Fever Within 48 Hours No Sepsis New/Unexplained Change in Mental Status No Sepsis Action Taken by Nursing No Action Required 04/07/20 11:30 04/07/20 12:00 04/07/20 12:01 Temperature Temperature Source Pulse Rate 52 L 57 L 53 L Pulse Rate from SpO2 Sensor 51 L 57 L 53 L Respiratory Rate 15 15 14 Respiratory Effort / Characteristics Respiratory Depth Blood Pressure 128/83 118/82 Blood Pressure Mean 88 91 Pulse Oximetry 99 98 99 Oxygen Delivery Method Sepsis Recent Fever Within 48 Hours Sepsis New/Unexplained Change in Mental Status Sepsis Action Taken by Nursing 04/07/20 12:16 04/07/20 12:30 04/07/20 12:31 Temperature Temperature Source Pulse Rate 52 L 56 L 72 Pulse Rate from SpO2 Sensor Respiratory Rate 15 16 13 Respiratory Effort / Characteristics Respiratory Depth Blood Pressure 116/79 106/69 Blood Pressure Mean 85 81 Pulse Oximetry Oxygen Delivery Method Sepsis Recent Fever Within 48 Hours Sepsis New/Unexplained Change in Mental Status Sepsis Action Taken by Nursing 04/07/20 13:00 04/07/20 13:01 04/07/20 13:30 Temperature Temperature Source Pulse Rate 71 62 56 L Pulse Rate from SpO2 Sensor 64 61 55 L Respiratory Rate 13 21 16 Respiratory Effort / Characteristics Respiratory Depth Blood Pressure 115/68 112/71 Blood Pressure Mean 78 93 Pulse Oximetry 99 99 99 Oxygen Delivery Method Sepsis Recent Fever Within 48 Hours Sepsis New/Unexplained Change in Mental Status Sepsis Action Taken by Nursing 04/07/20 13:31 04/07/20 13:34 04/07/20 14:00 Temperature Temperature Source Pulse Rate 65 69 62 Pulse Rate from SpO2 Sensor 66 Respiratory Rate 18 22 22 Respiratory Effort / Characteristics Respiratory Depth Blood Pressure 134/85 122/68 Blood Pressure Mean 90 80 Pulse Oximetry 100 Oxygen Delivery Method Sepsis Recent Fever Within 48 Hours Sepsis New/Unexplained Change in Mental Status Sepsis Action Taken by Nursing 04/07/20 14:30 04/07/20 14:31 04/07/20 15:00 Temperature Temperature Source Pulse Rate 57 L 54 L 67 Pulse Rate from SpO2 Sensor Respiratory Rate 14 14 18 Respiratory Effort / Characteristics Respiratory Depth Blood Pressure 107/61 110/68 Blood Pressure Mean 80 94 Pulse Oximetry Oxygen Delivery Method Sepsis Recent Fever Within 48 Hours Sepsis New/Unexplained Change in Mental Status Sepsis Action Taken by Nursing Laboratory Data Result diagrams: 04/07/20 11:00 04/07/20 11:00 Lab Results 04/07/20 04/07/20 04/07/20 Range/Units 11:00 11:00 11:00 WBC 6.33 (4.8-10.8) K/uL RBC 4.50 (4.2-5.4) M/uL Hgb 14.4 (12.0-16.0) g/dL Hct 42.5 (37-47) % MCV 94.4 (80-100) fL MCH 32.0 (25-34) pg MCHC 33.9 (32-36) g/dL RDW Std Deviation 44.1 (36.4-46.3) fL RDW Coeff of Philip 12.9 (11.5-14.5) % Plt Count 317 (130-400) K/uL MPV 10.2 (7.4-10.4) fL Immature Gran % (Auto) 0.2 % Neut % (Auto) 68.8 % Lymph % (Auto) 19.1 % [place] % (Auto) 9.6 % Eos % (Auto) 2.1 % Baso % (Auto) 0.2 % Neut # (Auto) 4.36 (1.4-6.5) K/uL Lymph # (Auto) 1.21 (1.2-3.4) K/uL [place] # (Auto) 0.61 H (0.11-0.59) K/uL Eos # (Auto) 0.13 (0-0.5) K/uL Baso # (Auto) 0.01 (0-0.2) K/uL Immature Gran # (Auto) 0.01 (0.00-0.02) K/uL PT 10.6 (9.0-12.0) Seconds INR 1.0 (0.9-1.1) APTT 26.3 (21.0-31.0) Seconds PTT Ratio 0.9 D-Dimer < 190 (0-500) ug/L FEU Sodium 137 (136-145) mmol/L Potassium 4.1 (3.5-5.1) mmol/L Chloride 105 (98-107) mmol/L Carbon Dioxide 27 (21-32) mmol/L Anion Gap 5.0 (3-11) BUN 10 (7-18) mg/dl Creatinine 0.87 (0.6-1.2) mg/dl Est Cr Clr Drug Dosing 77.4 ml/min Est GFR ( Amer) 87.5 Est GFR (Non-Af Amer) 75.5 BUN/Creatinine Ratio 11.6 (10-20) Glucose 89 (70-99) mg/dl Calcium 10.3 H (8.5-10.1) mg/dl Magnesium (1.8-2.4) mg/dl Total Bilirubin 0.6 (0.2-1) mg/dl AST 31 (15-37) U/L ALT 43 (12-78) U/L Alkaline Phosphatase 85 (45-117) U/L Troponin I 0.063 H* (0-0.045) ng/ml Total Protein 8.9 H (6.4-8.2) gm/dl Albumin 4.9 (3.4-5.0) gm/dl Globulin 4.0 (2.5-4.0) gm/dl Albumin/Globulin Ratio 1.2 (0.9-2) 04/07/20 04/07/20 04/07/20 Range/Units 11:00 13:55 13:55 WBC (4.8-10.8) K/uL RBC (4.2-5.4) M/uL Hgb (12.0-16.0) g/dL Hct (37-47) % MCV (80-100) fL MCH (25-34) pg MCHC (32-36) g/dL RDW Std Deviation (36.4-46.3) fL RDW Coeff of Philip (11.5-14.5) % Plt Count (130-400) K/uL MPV (7.4-10.4) fL Immature Gran % (Auto) % Neut % (Auto) % Lymph % (Auto) % [place] % (Auto) % Eos % (Auto) % Baso % (Auto) % Neut # (Auto) (1.4-6.5) K/uL Lymph # (Auto) (1.2-3.4) K/uL [place] # (Auto) (0.11-0.59) K/uL Eos # (Auto) (0-0.5) K/uL Baso # (Auto) (0-0.2) K/uL Immature Gran # (Auto) (0.00-0.02) K/uL PT (9.0-12.0) Seconds INR (0.9-1.1) APTT (21.0-31.0) Seconds PTT Ratio D-Dimer Cancelled (0-500) ug/L FEU Sodium (136-145) mmol/L Potassium (3.5-5.1) mmol/L Chloride (98-107) mmol/L Carbon Dioxide (21-32) mmol/L Anion Gap (3-11) BUN (7-18) mg/dl Creatinine (0.6-1.2) mg/dl Est Cr Clr Drug Dosing ml/min Est GFR ( Amer) Est GFR (Non-Af Amer) BUN/Creatinine Ratio (10-20) Glucose (70-99) mg/dl Calcium (8.5-10.1) mg/dl Magnesium 2.6 H (1.8-2.4) mg/dl Total Bilirubin (0.2-1) mg/dl AST (15-37) U/L ALT (12-78) U/L Alkaline Phosphatase (45-117) U/L Troponin I 0.064 H* (0-0.045) ng/ml Total Protein (6.4-8.2) gm/dl Albumin (3.4-5.0) gm/dl Globulin (2.5-4.0) gm/dl Albumin/Globulin Ratio (0.9-2) Administered Medications Heparin Sodium/Dextrose (Heparin Sodium/Dextrose) 25,000 units in 500 mls @ 16 mls/hr IV .Q24H ADRIANNE; Protocol Stop: 05/07/20 15:29 Last Titration: 04/07/20 19:01 Dose: 800 units/hr, 16 mls/hr Documented by: [id number] Cosigned by: [id number] Admin: 04/07/20 16:25 Dose: 800 units/hr, 16 mls/hr Documented by: [id number] Cosigned by: [id number] Nitroglycerin (Nitro-Bid 2%) 0.5 inch EXT Q6H ADRIANNE Stop: 05/07/20 15:14 Last Admin: 04/07/20 15:15 Dose: 0.5 inch Documented by: [id number] Discontinued Medications Aspirin (Aspirin Chew) 243 mg PO NOW STA Stop: 04/07/20 12:13 Last Admin: 04/07/20 12:20 Dose: 243 mg Documented by: [id number] Heparin Sodium (Porcine) (Heparin Iv Bolus) 4,000 units IV NOW STA Stop: 04/07/20 16:13 Last Admin: 04/07/20 16:25 Dose: 4,000 units Documented by: [id number] Cosigned by: [id number] Heparin Sodium/Dextrose () 1 ea IV NOW STA; Protocol Stop: 04/07/20 16:16 Last Admin: 04/07/20 16:25 Dose: 1 ea Documented by: [id number] Nitroglycerin (Nitrostat) 0.4 mg SL NOW STA Stop: 04/07/20 12:13 Last Admin: 04/07/20 12:21 Dose: 0.4 mg Documented by: [id number] Nitroglycerin (Nitrostat) 0.4 mg SL NOW STA Stop: 04/07/20 13:43 Last Admin: 04/07/20 13:47 Dose: 0.4 mg Documented by: [id number] Ondansetron HCl (Zofran) Confirm Administered Dose 4 mg .ROUTE .STK-MED ONE Stop: 04/07/20 13:34 Last Admin: 04/07/20 13:47 Dose: 4 mg Documented by: [id number] Ondansetron HCl (Zofran) 4 mg IV NOW STA Stop: 04/07/20 13:43 Last Admin: 04/07/20 13:47 Dose: Not Given Documented by: [id number] Discharge Plan Visit Data *Final* Discharge Date/Time: 04/07/20 16:30 Chief Complaint: Cardiac Assessment Stated Complaint: HEART ATTACK ALEXEY HAS NECK, JAW PAIN RIGHT SIDE ED Provider: Rahul Thomas Discharge Problem: Non-ST elevation IA (NSTEMI), Chest pain Patient Disposition: Home - Self-Care Discharge Instructions Interventions: ED Discharge Assessment Last Done: 04/07/20 16:30 Discharge Problem: Chest pain Qualifiers: Chest pain type: unspecified Qualified Code(s): R07.9 - Chest pain, unspecified
[2020-04-07] MEDS ORDERED: ONDANSETRON INJ 2 MG/ML 2 ML VIAL ONE (13:33)
[2020-04-07] MEDS ORDERED: ONDANSETRON INJ 2 MG/ML 2 ML VIAL IV STA (13:42)
--- NOTE | 2020-04-07 13:44 | Electrocardiogram Report ---
Test Reason : Blood Pressure : / mmHG Vent. Rate : 059 BPM Atrial Rate : 059 BPM P-R Int : 170 ms QRS Dur : 080 ms QT Int : 416 ms P-R-T Axes : 058 001 -18 degrees QTc Int : 411 ms Sinus bradycardia Inferior infarct , age undetermined Possible Anterolateral infarct , age undetermined Abnormal ECG No previous ECGs available Confirmed by Drake Curtis ([id number]) on 04/07/2020 1:43:32 PM Referred By: Confirmed By:Drake Curtis
--- NOTE | 2020-04-07 14:54 | Electrocardiogram Report ---
Test Reason : Blood Pressure : / mmHG Vent. Rate : 060 BPM Atrial Rate : 060 BPM P-R Int : 188 ms QRS Dur : 080 ms QT Int : 424 ms P-R-T Axes : 060 -01 -13 degrees QTc Int : 424 ms Normal sinus rhythm Inferior infarct (cited on or before 29-OCT-2019) Cannot rule out Anterior infarct (cited on or before 29-OCT-2019) Abnormal ECG When compared with ECG of 07-APR-2020 10:57, (unconfirmed) No significant change was found Confirmed by Drake Curtis ([id number]) on 04/07/2020 2:54:21 PM Referred By: REFERRED SELF Confirmed By:Drake Curtis
[2020-04-07] MEDS: NITROGLYCERIN 2% OINTMENT 30GM TUBE EXT SCH ×2 (15:15→20:51)
[2020-04-07] MEDS ORDERED: Heparin IV Low Dose *NO* Bolus IV ONE (15:16)
--- NOTE | 2020-04-07 15:29 | History & Physical Report ---
Date of Service April 07, 2020 Assessment & Plan (1) Non-ST elevation PA (NSTEMI): Troponin stable, however having ongoing right jaw/neck pain similar to her prior STEMI. Start low dose heparin drip IV with bolus and nitro paste 0.[address] Coombs over the phone, no need for urgent cardiac catheterization currently but likely will have cardiac cath tomorrow (patient informed of this). Consult cardiology NPO after midnight (2) Hyperlipidemia: Continue rosuvastatin (3) CAD (coronary artery disease), [place] coronary artery: Continue her usual medications ASA, Brillinta, rosuvastatin. Unable to tolerate BB due to dizziness History of Present Illness Chief Complaint: Right jaw/shoulder pain Primary Care Provider: Mago Girard MD Mariam Seymour is a 54 year old female with significant recent history of STEMI 5 months ago who presents to the ER with ongoing right neck and shoulder pain since Sunday. Constant aching since then. Occasionally improves but never completely resolving since then. Nothing appears to make is worse or better (specifically no worse with eating). Occasionally goes down to her right shoulder but mostly under her jaw. Non exertional, pleuritic or positional. No associated diaphoresis, nausea or shortness of breath. She notes her symptoms are similar but much milder than when she had her STEMI. She notes going through cardiac rehab and doing well without recurrence of her symptoms. She has even gone back to spinning class (during which she had her STEMI in Oct) without recurrence of her symptoms. She reports taking her medications without missing any doses. She denies any family history of pro-thrombotic disorders or autoimmune conditions such as lupus, rheumatoid arthritis, vasculitis. While in the ER she was given nitroglycerin 0.4mg SL tab which helped relieve some of the shoulder pain but her jaw pain remains, currently mild. Allergies Allergy/AdvReac Type Severity Reaction Status Date / Time No Known Drug Allergies Allergy Verified 04/07/20 11:27 Home Medications Home Medications Medication Instructions Recorded Confirmed Type Allergy Relief (cetirizine) 10 mg PO DAILY PRN 10/12/19 04/07/20 History omega 7-rqm-uvd-fish oil [Fish Oil] 1 cap PO BID 10/12/19 04/07/20 History diclofenac sodium 2 g TOPICAL QID PRN 10/29/19 04/07/20 History aspirin [Ecotrin Low Strength] 81 mg PO QAM #90 tab 10/31/19 04/07/20 Rx ticagrelor [Brilinta] 90 mg PO BID #60 tab 10/31/19 04/07/20 Rx coenzyme Q10 100 mg capsule 100 mg PO DAILY #30 cap 11/13/19 04/07/20 Rx nitroglycerin 0.4 mg sublingual 0.4 mg SUBLINGUAL PRN PRN #1 btl 12/16/19 04/07/20 Rx tablet rosuvastatin 20 mg tablet 20 mg PO DAILY #90 tab 04/02/20 04/07/20 Rx Past Med/Surg History Medical History CAD (coronary artery disease), [place] coronary artery Hyperlipidemia ST elevation (STEMI) myocardial infarction (Resolved ~10/2019) Surgical History H/O: hysterectomy S/P drug eluting coronary stent placement S/P wisdom tooth extraction Family History Father Heart disease Myocardial infarction Lung disease Denies family history of Ovarian cancer Prostate cancer Breast cancer Colorectal cancer Social History Preferred Language: Croatian Communication Ability: Effective Visual Impairment: No Limitations Hearing Ability: Normal 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: No Beliefs That Will Affect Care: None marital status: Current Living Situation: Spouse current occupational status: employed current occupation: works for [employer] Other Information That Helps Us Care for You: No Feels Safe at Home: Yes Safety Concerns: Feels Safe At This Time Smoking Status: Never smoker Second Hand Exposure: No ; Hx Alcohol Use: Yes Alcohol type: wine Alcohol Intake Frequency: Weekly Hx Substance Use: No Childhood Exposure to Second-Hand Smoke: No Dental Care, Regularly: Yes Physical Activity Frequency: 3-4 Times per Week Review of Systems Review of Systems: All systems reviewed & are unremarkable except as noted in HPI & below Physical Exam Constitutional: well developed and well nourished; no acute distress Eyes: + anicteric sclerae; normal pupil size ENMT: external ear and nose normal, oropharynx normal (No jaw pain on palpation) Neck: trachea midline, no thyromegaly Respiratory: normal respiratory effort, lungs clear to auscultation Cardiovascular: RRR, no murmur, no edema Gastrointestinal (Abdomen): normal bowel sounds, soft, nontender, no hepatosplenomegaly Musculoskeletal: no cyanosis or clubbing, extremities motor strength 5/5 Right shoulder neck inspection unremarkable. No pain on palpation over areas the has pain. Full ROM active and passive resistance without pain. Empty can, lift off, Hawkin'sravani negative Skin: no rashes, warm and dry Neurologic: moves all extremities and awake; no focal motor deficits and not confused Speech / Cognition: normal speech Motor/Sensory: no tremor, no pronator drift and no sensory deficit Psychiatric: A+Ox3, euthymic affect Lymphatic: no cervical or axillary lymphadenopathy Results & Data Results & Data ([facility]) Vital Signs (Past 12 Hours) Vital Signs Temp Pulse Resp BP Pulse Ox 04/07/20 15:00 67 18 110/68 04/07/20 14:31 54 L 14 04/07/20 14:30 57 L 14 107/61 04/07/20 14:00 62 22 122/68 04/07/20 13:34 69 22 134/85 04/07/20 13:31 65 18 100 04/07/20 13:30 56 L 16 112/71 99 04/07/20 13:01 62 21 99 04/07/20 13:00 71 13 115/68 99 04/07/20 12:31 72 13 04/07/20 12:30 56 L 16 106/69 04/07/20 12:16 52 L 15 116/79 04/07/20 12:01 53 L 14 99 04/07/20 12:00 57 L 15 118/82 98 04/07/20 11:30 52 L 15 128/83 99 04/07/20 11:09 69 20 100 04/07/20 11:07 68 17 126/82 04/07/20 10:57 36.7 C 54 L 20 126/82 100 Diagnostic Findings XR chest 1V portable IMPRESSION: No active disease in the chest. ECG Indication: other (right jaw pain) Rate (beats per minute): 60 Rhythm: normal sinus Findings: no acute ischemic change (prior inferior infarct, TWI III, aVF) Comparison ECG Date: from (October 29, 2019) Change: no significant change Code Status & VTE Plan Code Status Full VTE Prophylaxis Plan VTE Prophylaxis will be ordered: Yes PG Care Time/CCT Total # of Minutes Spent Total Time Spent with Patient: Total time spent is greater than 50% in coordination of care (as documented) at patient's floor/unit and/or counseling patient: Coding Level of Care Code 30830 Initial Inpt Care Lvl 3 Diagnoses Non-ST elevation PA (NSTEMI) I21.4 Hyperlipidemia E78.5 CAD (coronary artery disease), [place] coronary artery I25.10
[2020-04-07] MEDS ORDERED: HEPARIN SODIUM/DEXTROSE 25,000 UNITS/500 ML BAG IV SCH ×2 (15:30→16:15)
[2020-04-07] MEDS ORDERED: Heparin IV Low Dose *NO* Bolus IV SCH ×2 (15:30)
[2020-04-07] MEDS ORDERED: Heparin BOLUS **ED Use Only IV STA (16:12)
[2020-04-07] MEDS ORDERED: Heparin IV Low Dose WITH Bolus IV STA (16:15)
[2020-04-07] MEDS ORDERED: NITROGLYCERIN 2% OINTMENT 30GM TUBE EXT SCH ×2 (16:45)
[2020-04-07] MEDS ORDERED: ALUMINUM/MAGNESIUM SUSP 30 ML UDC PO PRN (17:11)
[2020-04-07] MEDS ORDERED: DICLOFENAC SOD 1% GEL 100 GM TUBE EXT PRN (17:11)
[2020-04-07] MEDS ORDERED: POLYETHYLENE (MIRALAX) 17 GM PACK PO PRN (17:11)
[2020-04-07] MEDS ORDERED: NITROGLYCERIN SL 0.4 MG/TAB TAB SL PRN (17:11)
[2020-04-07] MEDS ORDERED: MAGNESIUM HYDROXIDE SUSP 30 ML UDC PO PRN (17:11)
[2020-04-07] MEDS ORDERED: ONDANSETRON INJ 2 MG/ML 2 ML VIAL IV PRN (17:11)
[2020-04-07] MEDS ORDERED: CETIRIZINE HCL 10 MG TABLET PO PRN (17:17)
[2020-04-07] MEDS: TICAGRELOR 90 MG TAB PO SCH (20:47)
[2020-04-07] MEDS: ACETAMINOPHEN 325 MG TAB PO PRN (20:47)
[2020-04-07] MEDS: OMEGA-3 (PURIFIED FISH OIL) 1 GM CAP PO SCH (20:48)
[2020-04-07] MEDS: ROSUVASTATIN CALCIUM 20 MG TAB PO SCH (20:48)
[2020-04-07 23:22] LABS: Partial Thromboplastin Ratio 2.5
[2020-04-08 05:32] LABS: Hemoglobin 12.9 g/dL (12.0-16.0); Mean Corpuscular Hemoglobin 30.4 pg (25-34); Mean Corpuscular Hgb Conc 31.5 g/dL (32-36); Mean Corpuscular Volume 96.7 fL (80-100); Mean Platelet Volume 9.9 fL (7.4-10.4); Platelet Count 284 K/uL (130-400); RDW Coefficient of Variation 12.9 % (11.5-14.5); Red Blood Count 4.24 M/uL (4.2-5.4); White Blood Count 5.14 K/uL (4.8-10.8)
[2020-04-08] MEDS: SODIUM CHLORIDE 0.9% 1000ML 1,000 ML IV SCH ×2 (05:49→13:27)
[2020-04-08 05:50] LABS: BUN Creatinine Ratio 16.2 (10-20); Calcium 9.3 mg/dl (8.5-10.1); Creatinine Clr Calc Pharmacy 70.9 ml/min; Est GFR (African American) 78.7; Est GFR (Non-African American) 67.9; Potassium 4.4 mmol/L (3.5-5.1)
[2020-04-08 05:55] LABS: Partial Thromboplastin Ratio 2.3
[2020-04-08 06:00] LABS: Troponin I 0.064 ng/ml (0-0.045)
[2020-04-08 06:08] LABS: Partial Thromboplastin Time 64.1 Seconds (21.0-31.0)
[2020-04-08] MEDS: OMEGA-3 (PURIFIED FISH OIL) 1 GM CAP PO SCH ×2 (08:11→20:52)
[2020-04-08] MEDS: ASPIRIN 81 MG ECTAB PO SCH (08:11)
[2020-04-08] MEDS: TICAGRELOR 90 MG TAB PO SCH ×2 (08:13→20:51)
[2020-04-08] MEDS ORDERED: NON-FORMULARY MEDICATION (Coenzyme Q10 100 MG) PO SCH (09:00)
[2020-04-08] MEDS ORDERED: NiCARDipine HCL INJ 2.5 MG/ML 10 ML AMP ONE (09:20)
[2020-04-08] MEDS ORDERED: HEPARIN (PORCINE) 1000 UNIT/ML 10 ML (CATH LAB USE ONLY) ONE (09:20)
[2020-04-08] MEDS ORDERED: fentaNYL citrate 100 MCG/2 ML VIAL ONE ×3 (09:21→12:15)
[2020-04-08] MEDS ORDERED: NITROGLYCERIN/D5W 100MCG/ML 20ML SYR ONE (09:21)
[2020-04-08] MEDS ORDERED: MIDAZOLAM HCL 1 MG/ML 2ML VIAL ONE ×3 (09:21→11:02)
--- NOTE | 2020-04-08 09:40 | Pre Anesthesia Assessment ---
Date of Service April 08, 2020 Pre Sedation Assessment Vital Signs Temp Pulse Pulse Resp BP BP Pulse Ox 04/08/20 09:22 73 14 124/72 98 04/08/20 05:00 98.1 F 58 L 14 112/87 95 04/07/20 23:45 98.2 F 57 L 61 16 100/63 97 04/07/20 20:30 97.9 F 68 14 96/54 L 94 04/07/20 17:12 97.7 F 17 106/61 97 04/07/20 16:07 56 L 14 04/07/20 16:06 53 L 18 103/64 04/07/20 16:00 54 L 14 04/07/20 15:36 69 17 128/75 04/07/20 15:30 68 18 04/07/20 15:00 67 18 110/68 04/07/20 14:31 54 L 14 04/07/20 14:30 57 L 14 107/61 04/07/20 14:00 62 22 122/68 04/07/20 13:34 69 22 134/85 04/07/20 13:31 65 18 100 04/07/20 13:30 56 L 16 112/71 99 04/07/20 13:01 62 21 99 04/07/20 13:00 71 13 115/68 99 04/07/20 12:31 72 13 04/07/20 12:30 56 L 16 106/69 04/07/20 12:16 52 L 15 116/79 04/07/20 12:01 53 L 14 99 04/07/20 12:00 57 L 15 118/82 98 04/07/20 11:30 52 L 15 128/83 99 04/07/20 11:09 69 20 100 04/07/20 11:07 68 17 126/82 04/07/20 10:57 98.1 F 54 L 20 126/82 100 Cardiovascular RRR, no murmur, no edema Respiratory normal respiratory effort, lungs clear to auscultation Pre-Sedation Airway Assessment Smoking Status: Never smoker Hx Sleep Apnea: No Hx Difficult Intubation: No Short, Thick Neck: No Thyromental Distance: > or= 3.5 Finger Breadths Oral Cavity: + WNL Mallampati Class: II ASA: ASA3 NPO Status Date of Last Intake of Fluids: 04/08/20 Time of Last Intake of Fluids: 07:00 Last Oral Intake of Fluids Comment: sips with pills Date of Last Intake of Solid Food: 04/07/20 Time of Last Intake of Solid Foods: 18:00 Procedure Planning Contraindications for Sedation: none Current Medications Reviewed: Yes Notes The planned sedation has been discussed with the patient. Informed Consent was obtained. I have identified the patient, determined the appropriateness of sedation and have assessed the patient immediately prior to the procedure. All medicine(s) and interventions are by my order.
--- NOTE | 2020-04-08 09:47 | Cardiology Consultation ---
Date of Consultation April 08, 2020 Assessment & Plan (1) Chest pain: --Post primary PCI with SMITHA to mid RCA for STEMI 10/2019 2. 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 Preserved LV function with inferior wall motion abnormality 4. Dyslipidemia-- LDL at goal on current statin 5. Mild mitral regurgitation Patient with recurrent chest pain reminiscent of her prior SD symptoms and persistent mildly elevated troponin. Suspicion for ACS is elevated and recommend further invasive evaluation with cardiac catheterization. Discussed risks, benefits of procedure and she is willing to proceed. Further recommendations pending findings. History of Present Illness Attending Physician: Edgar Gibbs, History of Present Illness Mrs. Seymour is a very pleasant 54-year-old woman with a history of coronary artery disease diagnosed in the setting of inferior STEMI 10/2019 readmitted with recurrent chest pain. She was last seen by me 3 weeks ago at which time was doing well, exercising regularly without symptoms. 2 days ago exercised vigorously and felt well. Later that day developed persistent chest pain that radiated up into right neck. Pain reminiscent of symptoms with prior SD. Presented to ED yesterday and had mildly elevated troponin of 0.063, which was unchanged on repeat checks. ECG sinus with inferior qwaves and unchanged inferior Twave inversions. Some lateral Twave flattening on ECG this morning. Continued to have mild chest pain overnight. Telemetry unremarkable. Prior cardiac history: Patient admitted to [facility] 10/29/2019. She has had intermittent chest discomfort over the preceding several weeks leading to primary care and ED visits. A stress test in [place] reportedly had been unremarkable. Developed chest pain radiating down her right arm and nausea while exercising the day of admission. Subsequent EKGs showed inferior ST elevations. Underwent PCI with a single SMITHA to acute on chronic mid RCA occlusion. Post procedure course uncomplicated. Troponin peaked at 41. Preserved LV function on follow-up echo with inferior wall motion abnormality. Immediate post hospital course complicated by possible drug rash which resolved with antihistamine. Prior cardiovascular studies: Echo 10/2019 EF 50-55, akinesis of basal septum, basal inferior wall and severe hypokinesis of mid inferior wall, grade 1 diastolic dysfunction Cath/PCI 10/2019: 100% acute mid RCA occlusion, 40% proximal to mid LAD, 30% mid circumflex into OM 2 PCI to mid RCA with 4.0 x 22, post-dilated with 4.5 NC Allergies Allergy/AdvReac Type Severity Reaction Status Date / Time No Known Drug Allergies Allergy Verified 04/07/20 11:27 Home Medications Home Medications Medication Instructions Recorded Confirmed Type Allergy Relief (cetirizine) 10 mg PO DAILY PRN 10/12/19 04/07/20 History omega 4-[id number]-[id number]-fish oil [Fish Oil] 1 cap PO BID 10/12/19 04/07/20 History diclofenac sodium 2 g TOPICAL QID PRN 10/29/19 04/07/20 History aspirin [Ecotrin Low Strength] 81 mg PO QAM #90 tab 10/31/19 04/07/20 Rx ticagrelor [Brilinta] 90 mg PO BID #60 tab 10/31/19 04/07/20 Rx coenzyme Q10 100 mg capsule 100 mg PO DAILY #30 cap 11/13/19 04/07/20 Rx nitroglycerin 0.4 mg sublingual 0.4 mg SUBLINGUAL PRN PRN #1 btl 12/16/19 04/07/20 Rx tablet rosuvastatin 20 mg tablet 20 mg PO DAILY #90 tab 04/02/20 04/07/20 Rx Patient History Medical History (Updated 04/07/20 @ 20:09 by Rahul Thomas M.D.) CAD (coronary artery disease), [place] coronary artery Hyperlipidemia ST elevation (STEMI) myocardial infarction (Resolved ~10/2019) Surgical History H/O: hysterectomy S/P drug eluting coronary stent placement S/P wisdom tooth extraction Social History (Updated 11/04/19 @ 14:09 by Isi Vega) Preferred Language: Emir[place] Communication Ability: Effective Visual Impairment: No Limitations 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: No Beliefs That Will Affect Care: None marital status: Current Living Situation: Spouse current occupational status: employed current occupation: works for [employer] Other Information That Helps Us Care for You: No Feels Safe at Home: Yes Safety Concerns: Feels Safe At This Time Smoking Status: Never smoker Second Hand Exposure: No ; Hx Alcohol Use: Yes Alcohol type: wine Alcohol Intake Frequency: Weekly Hx Substance Use: No Childhood Exposure to Second-Hand Smoke: No Dental Care, Regularly: Yes Physical Activity Frequency: 3-4 Times per Week Review of Systems Review of Systems: All systems reviewed & are unremarkable except as noted in HPI & below Physical Exam Physical Exam: General: Comfortable, no acute distress Eyes: Sclerae anicteric, extraocular movements intact HENT: Oropharynx clear mucous membranes moist Neck: Normal carotid upstrokes, no bruits. No JVD. Lungs: Clear to auscultation bilaterally, no rhonchi or wheezes Cardiac: Regular rate and rhythm, no murmurs, rubs or gallops. Abdomen: Soft, nontender, nondistended, positive bowel sounds. Neuro: Nonfocal Psych: Alert orient x3, normal affect and mood Extremities/Vascular: -- 2+ radial bilaterally -- No lower extremity ulcerations. -- No edema Results & Data ([facility]) Vital Signs (Past 12 Hours) Vital Signs Temp Pulse Pulse Resp BP Pulse Ox 04/08/20 09:22 73 14 124/72 98 04/08/20 05:00 98.1 F 58 L 14 112/87 95 04/07/20 23:45 98.2 F 57 L 61 16 100/63 97 PG Care Time/CCT Total # of Minutes Spent Total Time Spent with Patient: Total time spent is greater than 50% in coordination of care (as documented) at patient's floor/unit and/or counseling patient: Coding Level of Care Code 19125 Inpt Consult Level 4 Diagnoses Chest pain R07.9 Chest pain type: unspecified (1) Chest pain Chest pain type: unspecified Qualified Code(s): R07.9 - Chest pain, unspecified
[2020-04-08] MEDS ORDERED: ADENOSINE IV SOLN 3 MG/ML 20 ML VIAL IV ONE (10:19)
[2020-04-08] MEDS: ROSUVASTATIN CALCIUM 20 MG TAB PO SCH (10:38)
[2020-04-08] MEDS ORDERED: Nursing to Pharmacy Communication SCH ×2 (10:45→15:15)
--- NOTE | 2020-04-08 11:39 | Post Anesthesia Assessment ---
Date of Service April 08, 2020 Post Sedation Assessment Vital Signs Temp Pulse Pulse Resp BP BP Pulse Ox 04/08/20 09:22 73 14 124/72 98 04/08/20 08:00 98.2 F 55 L 67 16 111/66 97 04/08/20 05:00 98.1 F 58 L 14 112/87 95 04/07/20 23:45 98.2 F 57 L 61 16 100/63 97 04/07/20 20:30 97.9 F 68 14 96/54 L 94 04/07/20 17:12 97.7 F 17 106/61 97 04/07/20 16:07 56 L 14 04/07/20 16:06 53 L 18 103/64 04/07/20 16:00 54 L 14 04/07/20 15:36 69 17 128/75 04/07/20 15:30 68 18 04/07/20 15:00 67 18 110/68 04/07/20 14:31 54 L 14 04/07/20 14:30 57 L 14 107/61 04/07/20 14:00 62 22 122/68 04/07/20 13:34 69 22 134/85 04/07/20 13:31 65 18 100 04/07/20 13:30 56 L 16 112/71 99 04/07/20 13:01 62 21 99 04/07/20 13:00 71 13 115/68 99 04/07/20 12:31 72 13 04/07/20 12:30 56 L 16 106/69 04/07/20 12:16 52 L 15 116/79 04/07/20 12:01 53 L 14 99 04/07/20 12:00 57 L 15 118/82 98 Recovery Score Activity: Moves 4 extremities Respiration: Deep Breath/Cough Circulation: +/-20% PreAnes Value Consciousness: Fully Awake Oxygen Saturation: O2 needed for >90% Discharge Sedation Level of Care: Fast Track Phase II Post Sedation Plan On clinical assessment, the patient appears to have tolerated the sedation without complications. Patient is recovering as anticipated. Patient will continue to be monitored by nursing and may be discharged when sedation discharge criteria are met per below protocol. Upon Completions of procedure up to 15 minutes continue every 5 minute vital signs and the P.A.R. score; then discharge to a Phase I or Fast Track to Phase II per the following guidelines: * Discharge Patient to appropriate Phase II area if PAR is 8 or greater or return to pre- procedure baseline. The post - procedure orders will be as directed. * If PAR score is less than 8 or not return to pre-procedure baseline then patient will follow Phase I monitoring till PAR is reached for Phase II. The Phase I may be done in procedure room or may call to secure a Phase I area. * If naloxone or flumazenil are used for reversal, hold in Phase I for continued monitoring from when last reversal dose was given for a minimum of 60 minutes or longer pending the nurse and/or physician discretion of patient condition before discharge to Phase II. Please call the Sedation Physician to re-evaluate and complete post-note for discharge to Phase II area. Do NOT discharge from procedure sedation or Phase 1 until post- sedation evaluation note is complete by procedure /sedation MD Sedation Discharge Instructions to be given to the patient at discharge to home.
--- NOTE | 2020-04-08 11:51 | Cardiac Catheterization ---
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 Clinical evaluation leading to the procedure CAD Presenation: Non STEMI Anginal Classification: CCS IV Heart Failure: No Cardiogenic Shock within 24 Hours: No Cardiac Arrest within 24 Hours: No Imaging Studies Past 6 Months: Yes Stress Studies Past 6 Months: No Diagnostic Physicians Name: Renato Coombs MD Status: Elective Closure Device Percutaneous Entry Location: Radial Closure Device: Radial Band Recommendations: PCI without planned CABG PCI Indication: PCI for high risk Non-TATIANA Lesion Segment Name: mid LAD Culprit Artery: Yes Stenosis Prior to Rx (%): 70 Chronic Total Occlusion: No IVUS: Yes FFR: Yes Ratio: greater than 0.75% Pre-Procedure SURESH Flow: 3 Previously Treated Lesion: No Lesion Complexity: Non-High/Non-C Lesion Length (mm): 30 Thrombus Present: No Bifurcation Lesion: Yes Guidewire Across Lesion: Stenosis Post-Procedure (%): 0 Post-Procedure SURESH Flow: 3 Devices(s) Deployed: Yes Yes Intraprocedure Events Significant Disection: No Perforation: No Cardiac Cath Procedure Full Procedure Date April 08, 2020 Pre-Procedure Diagnosis Pre-Procedure Diagnosis: Non STEMI AUC Score AUC Score: 7 Post-Procedure Diagnosis Post-Procedure Diagnosis: Severe CAD, Successful PCI and Elevated Intracardiac Pressures Procedure(s) Performed Procedure(s) Performed: Coronary Angiography, Left Heart Cath, Drug Eluting Stent, Ultrasound Guided Vascular Access, IVUS and Fractional Flow [place] [employer] Operations Officer Renato Coombs MD Director Of Construction(s) Fatuma Estimated Blood Loss Estimated Blood Loss: 15 Medication(s) Medication(s): Clopidogrel, Fentanyl, Heparin, Lidocaine 1%, Nicardipine, Nitroglycerin and Versed Summary of Findings Indication: Recurrent chest pain, mildly elevated troponin Access: 6 Fr right ulnar artery under ultrasound guidance Catheters: [place], JL 3.5 guide Findings: LM -large-caliber, luminal irregularities LAD -medium caliber vessel, 50-60% diffuse proximal to mid disease extending across bifurcation of medium caliber second diagonal. Mid to distal luminal irregularities as vessel wraps around apex. Second diagonal with 30% proximal disease. Circumflex -medium caliber vessel, 20 to 30% diffuse proximal to mid disease, 30% ostial stenosis of medium OM 2. RCA -dominant, large caliber vessel, widely patent mid RCA stent. PLB provides small right to left collaterals to question very small distal left PLB. FFR of mid LAD Procedure: -Left main cannulated with JL 3.5 guide -BMW wire placed into distal LAD -ACIST Catheter placed across stenosis -Pd/Pa 0.85 -FFR 0.76 Decision to proceed with PCI -- PCI -- Antithrombotic therapy: Heparin, ticagrelor Procedure: LAD lesion evaluated with IVUS diffuse moderate to severe disease with eccentric calcification. Peak stenosis just after takeoff of second diagonal measuring 70%. Mid LAD lesion predilated with 2.5 compliant balloon Dilated lesion stented with 2.75 x 33 mm Xience Yuridia Stent post-dilated with 3.5 noncompliant balloon IC vasodilators administered for spasm IVUS showed well-expanded, well apposed stent Post procedure SURESH 3 flow, stent well expanded with minimal residual stenosis and no apparent cardiac complications. Arterial Closure: TR band Summary: 1. Severe single vessel coronary artery disease -60% diffuse proximal to mid LAD stenosis angiographically (70% by IVUS, FFR 0.76). Widely patent mid RCA stent Faint right to left collaterals to very small left PLB 2. Normal intracardiac filling pressure 3. Successful PCI of proximal to mid LAD with single drug-eluting stent (2.75 x 33 Xience Yuridia; postdilated with 3.5 NC). Recommendations: To PCU for continued monitoring Continue dual-antiplatelet therapy with aspirin, ticagrelor for at least 1 year Maximize antianginal therapy, continue ASCVD risk factor modification Hemodynamics Rest Ao:: 82/39/55 Final Ao: 96/56/75 LV: 109/14 Recommendations Recommendations: PCI without planned CABG Specimens Specimens: None Radiation Exposure (mGy) 2466 Contrast (mls) 115 Fluids (cc crystalloids) Fluids (cc crystalloids): 395 Drains Drains: None Anesthesia Moderate Procedural Complication(s) None Disposition PCU I attest to the content of the Intraoperative Record and any orders documented therein. Any exceptions are noted below. Fluoresentric Card Cath Procedure Codes Cardiac Catheterization Procedure 1: Cardiovascular Cath Procedures: 98260 Coronaries and LHC (+/-LV) Procedure 2: Cardiovascular Cath Procedures: 14417 (Doppler) Pressure Wire Therapeutic Services & Ancillary Proc Procedure 1: Cardiovascular Tx and Anc Procedures: 06046 Ultrasonic Guidance Vascular Access Procedure 2: Cardiovascular Tx and Anc Procedures: 04915 IV Ultrasound (Coronary or Graft) Stenting Procedure 1: Cardiovascular Stent Procedures: 50944 Perc transcatheter placement of intracoronary stent(s), with ang PG Care Time/CCT Total # of Minutes Spent Total Time Spent with Patient: Total time spent is greater than 50% in coordination of care (as documented) at patient's floor/unit and/or counseling patient:
--- NOTE | 2020-04-08 13:18 | Hospitalist Progress Note ---
Date of Service April 08, 2020 Assessment & Plan (1) Non-ST elevation MS (NSTEMI): presented with ongoing right jaw/neck pain similar to her prior STEMI pain was relieved with nitro admitted to PCU, treated with heparin drip, aspirin, Brilinta, Crestor left heart cath on 04/08 with severe 70% stenosis in LAD, treated with one SMITHA the prior stent in RCA was widely patent transferred back to PCU, will keep over night, likely for discharge tomorrow (2) Hyperlipidemia: Continue rosuvastatin 20mg daily (3) CAD (coronary artery disease), [place] coronary artery: Continue her usual medications ASA, Brillinta, rosuvastatin. Unable to tolerate BB due to dizziness Admission and Anticipated Discharge Date Admission Date: April 07, 2020 Subjective patient seen this morning prior to cath feeling better, says that the nitro seemed to improve her symptoms confirmed that the pain in the right jaw was similar to pain she was experiencing for months prior to her STEMI reviewed labs, stable d/w Dr. Coombs, he will take for cath left heart cath done this morning, showed severe single vessel disease in mid LAD, one drug eluting stent placed back to PCU, will observe over night Review of Systems Review of Systems: All systems reviewed & are unremarkable except as noted in HPI & below Respiratory: no dyspnea and no dyspnea on exertion Cardiovascular: + radiating jaw, neck or arm pain (right jaw, relieved with nitro); no chest pain Physical Exam Constitutional: WD/WN, vitals as above Eyes: PERRL, conjunctivae normal, anicteric sclerae ENMT: external ear and nose normal, oropharynx normal Neck: trachea midline, no thyromegaly Respiratory: normal respiratory effort, lungs clear to auscultation Cardiovascular: RRR, no murmur, no edema Gastrointestinal (Abdomen): normal bowel sounds, soft, nontender, no hepatosplenomegaly Musculoskeletal: no cyanosis or clubbing, extremities motor strength 5/5 Skin: no rashes, warm and dry Neurologic: patellar DTR's 2+ bilat, sensation intact and PERRL, EOMI, accommodation nl, no face palsy, no dysarthria Psychiatric: A+Ox3, euthymic affect Lymphatic: no cervical or axillary lymphadenopathy Results & Data Results & Data ([facility]) Vital Signs (Past 12 Hours) Vital Signs Temp Pulse Pulse Resp BP Pulse Ox 04/08/20 13:00 36.8 C 75 75 16 107/78 98 04/08/20 12:45 61 14 112/74 98 04/08/20 12:30 63 14 118/76 98 04/08/20 12:15 61 14 121/62 97 04/08/20 12:00 65 14 115/60 99 04/08/20 11:45 61 14 109/64 99 04/08/20 09:22 73 14 124/72 98 04/08/20 08:00 36.8 C 55 L 67 16 111/66 97 04/08/20 05:00 36.7 C 58 L 14 112/87 95 Laboratory Results Laboratory Results - last 24 hr 04/07/20 04/07/20 04/07/20 13:55 13:55 22:46 WBC RBC Hgb Hct MCV MCH MCHC RDW Std Deviation RDW Coeff of Philip Plt Count MPV APTT 71.0 H* PTT Ratio 2.5 Activ Coag Time Kaolin Sodium Potassium Chloride Carbon Dioxide Anion Gap BUN Creatinine Est Cr Clr Drug Dosing Est GFR ( Amer) Est GFR (Non-Af Amer) BUN/Creatinine Ratio Glucose Calcium Magnesium 2.6 H Troponin I 0.064 H* 04/08/20 04/08/20 04/08/20 05:23 05:23 05:23 WBC 5.14 RBC 4.24 Hgb 12.9 Hct 41.0 MCV 96.7 MCH 30.4 MCHC 31.5 L RDW Std Deviation 45.0 RDW Coeff of Philip 12.9 Plt Count 284 MPV 9.9 APTT 64.1 H* PTT Ratio 2.3 Activ Coag Time Kaolin Sodium 142 Potassium 4.4 Chloride 109 H Carbon Dioxide 29 Anion Gap 4.0 BUN 15 Creatinine 0.95 Est Cr Clr Drug Dosing 70.9 Est GFR ( Amer) 78.7 Est GFR (Non-Af Amer) 67.9 BUN/Creatinine Ratio 16.2 Glucose 98 Calcium 9.3 Magnesium Troponin I 0.064 H* 04/08/20 04/08/20 10:50 11:01 WBC RBC Hgb Hct MCV MCH MCHC RDW Std Deviation RDW Coeff of Philip Plt Count MPV APTT PTT Ratio Activ Coag Time Kaolin 230 H 274 H Sodium Potassium Chloride Carbon Dioxide Anion Gap BUN Creatinine Est Cr Clr Drug Dosing Est GFR ( Amer) Est GFR (Non-Af Amer) BUN/Creatinine Ratio Glucose Calcium Magnesium Troponin I Medications Administered Current Inpatient Medications Acetaminophen (Tylenol) 650 mg PO Q4H PRN PRN Reason: Pain or Fever Stop: 05/07/20 17:10 Last Admin: 04/07/20 20:47 Dose: 650 mg Documented by: Al Hydrox/Mg Hydrox/Simethicone (Maalox) 15 ml PO Q4H PRN PRN Reason: Dyspepsia Stop: 05/07/20 17:10 Aspirin (Ecotrin Ectab) 81 mg PO QAM ADRIANNE Stop: 05/08/20 08:59 Last Admin: 04/08/20 08:11 Dose: 81 mg Documented by: Cetirizine HCl (Zyrtec) 10 mg PO DAILY PRN PRN Reason: allergy symptoms Stop: 05/07/20 17:16 Diclofenac Sodium (Voltaren 1% Top) 2 gm EXT QID PRN PRN Reason: Pain Stop: 05/07/20 17:10 Fish Oil ([place]-3 (Purified Fish Oil)) 1 gm PO BID [facility] Stop: 05/07/20 20:59 Last Admin: 04/08/20 08:11 Dose: 1 gm Documented by: Heparin Sodium/Dextrose (Heparin Sodium/Dextrose) 25,000 units in 500 mls @ 15 mls/hr IV .Q24H [facility]; Protocol Stop: 05/07/20 15:29 Last Titration: 04/08/20 09:15 Dose: 0 units/hr, 0 mls/hr Documented by: Sodium Chloride (Nss 1000ml) 1,000 mls @ 125 mls/hr IV .Q8H [facility] Stop: 05/08/20 04:29 Last Admin: 04/08/20 05:49 Dose: 125 mls/hr Documented by: Magnesium Hydroxide (Milk Of Magnesia) 30 ml PO Q12H PRN PRN Reason: Constipation Stop: 05/07/20 17:10 Morphine Sulfate (Morphine Sulfate) 2 mg IV Q30M PRN PRN Reason: Chest Pain Stop: 04/21/20 16:06 Nitroglycerin (Nitrostat) 0.4 mg SL PRN PRN PRN Reason: chest pain Stop: 05/07/20 17:10 Ondansetron HCl (Zofran) 4 mg IV Q6H PRN PRN Reason: Nausea Stop: 05/07/20 17:10 Polyethylene Glycol (Miralax Powder Packet) 17 gm PO DAILY PRN PRN Reason: Constipation Stop: 05/07/20 17:10 Rosuvastatin Calcium (Crestor) 20 mg PO HS ADRIANNE Stop: 05/08/20 08:59 Ticagrelor (Brilinta) 90 mg PO BID ADRIANNE Stop: 05/07/20 20:59 Last Admin: 04/08/20 08:13 Dose: 90 mg Documented by: PG Care Time/CCT Total # of Minutes Spent Total Time Spent with Patient: Total time spent is greater than 50% in coordination of care (as documented) at patient's floor/unit and/or counseling patient: Coding Level of Care Code 78491 Subseq Hosp Care Lvl 2 Diagnoses Non-ST elevation MS (NSTEMI) I21.4 Hyperlipidemia E78.5 CAD (coronary artery disease), [place] coronary artery I25.10
[2020-04-08] MEDS: ACETAMINOPHEN 325 MG TAB PO PRN ×2 (14:22→20:02)
[2020-04-08] MEDS: MoRPHine SULFATE 2 MG/ML CARP IV PRN ×2 (14:30→16:20)
[2020-04-08] MEDS ORDERED: ROSUVASTATIN CALCIUM 20 MG TAB PO SCH (21:00)
--- NOTE | 2020-04-08 21:31 | Electrocardiogram Report ---
Test Reason : Blood Pressure : / mmHG Vent. Rate : 056 BPM Atrial Rate : 056 BPM P-R Int : 194 ms QRS Dur : 084 ms QT Int : 430 ms P-R-T Axes : 050 004 -19 degrees QTc Int : 414 ms Sinus bradycardia Inferior infarct (cited on or before 29-OCT-2019) Possible Anterolateral infarct (cited on or before 29-OCT-2019) Nonspecific T wave abnormality Abnormal ECG When compared with ECG of 07-APR-2020 13:35, Nonspecific T wave abnormality now evident in Anterolateral leads Confirmed by Shaji Logan ([id number]) on 04/08/2020 9:30:57 PM Referred By: REFERRED SELF Confirmed By:Shaji Logan
--- NOTE | 2020-04-08 22:22 | Electrocardiogram Report ---
Test Reason : Blood Pressure : / mmHG Vent. Rate : 063 BPM Atrial Rate : 063 BPM P-R Int : 194 ms QRS Dur : 082 ms QT Int : 416 ms P-R-T Axes : 056 -01 -27 degrees QTc Int : 425 ms Normal sinus rhythm Inferior infarct (cited on or before 29-OCT-2019) Cannot rule out Anterior infarct (cited on or before 29-OCT-2019) Abnormal ECG When compared with ECG of 08-APR-2020 06:06, (unconfirmed) Nonspecific T wave abnormality no longer evident in Anterolateral leads Confirmed by Shaji Logan ([id number]) on 04/08/2020 10:22:20 PM Referred By: REFERRED SELF Confirmed By:Shaji Logan
[2020-04-09] MEDS: ACETAMINOPHEN 325 MG TAB PO PRN ×3 (00:36→08:43)
--- NOTE | 2020-04-09 08:14 | Cardiology Progress Note ---
Date of Service April 09, 2020 Assessment & Plan (1) Chest pain: --Post PCI to proximal to mid LAD with single drug-eluting stent 2. Post primary PCI with SMITHA to mid RCA for STEMI 10/2019 3. Preserved LV function with inferior wall motion abnormality 4. Dyslipidemia-- LDL at goal on current statin 5. Mild mitral regurgitation Patient chest pain-free this morning. Right arm swelling, ecchymotic but neurovascularly intact distally. From a cardiac standpoint okay with discharge today. Home on DAPT with aspirin, ticagrelor. In the setting of suspected small vessel disease recommend starting amlodipine 2.5 mg daily Continue high intensity statin Recommend no heavy lifting, avoiding flexing right wrist for at least 7 days. Tylenol for pain control. We discussed staying home from work over that time. Follow-up with me in 1 week. Admission and Anticipated Discharge Date Admission Date: April 07, 2020 Subjective Chest pain, jaw pain is resolved. No significant shortness of breath. Right arm remains sore. Denies numbness or pain in her fingers. Telemetryno events. Review of Systems Review of Systems: All systems reviewed & are unremarkable except as noted in HPI & below Physical Exam Physical Exam: General: Comfortable, no acute distress HEENT: Sclerae anicteric, mucous membranes moist Lungs: Clear to auscultation bilaterally Cardiac: Regular rate and rhythm, no murmurs. Abdomen: Soft, nontender, nondistended, positive bowel sounds. Extremities: Warm, well perfused, no edema. Ulnar pulse palpable. Diffuse ecchymosis. Right forearm swollen but softer than yesterday. Normal capillary refill in fingers distally. Normal sensation Psych: Alert orient x3, normal affect and mood Results & Data ([facility]) Vital Signs (Past 12 Hours) Vital Signs Temp Pulse Resp BP Pulse Ox 04/09/20 04:00 97.9 F 68 14 106/56 L 96 04/08/20 23:12 98.4 F 80 13 114/68 98 PG Care Time/CCT Total # of Minutes Spent Total Time Spent with Patient: Total time spent is greater than 50% in coordination of care (as documented) at patient's floor/unit and/or counseling patient: Coding Level of Care Code 98461 Subseq Hosp Care Lvl 3 Diagnoses Chest pain R07.9 Chest pain type: unspecified (1) Chest pain Chest pain type: unspecified Qualified Code(s): R07.9 - Chest pain, unspecified
[2020-04-09] MEDS: ASPIRIN 81 MG ECTAB PO SCH (08:42)
[2020-04-09] MEDS: TICAGRELOR 90 MG TAB PO SCH (08:42)
[2020-04-09] MEDS: OMEGA-3 (PURIFIED FISH OIL) 1 GM CAP PO SCH (08:43)
--- NOTE | 2020-04-09 08:55 | Discharge Summary ---
Date of Service April 09, 2020 Admission HPI Per Admitting Provider Mariam Seymour is a 54 year old female with significant recent history of STEMI 5 months ago who presents to the ER with ongoing right neck and shoulder pain since Sunday. Constant aching since then. Occasionally improves but never completely resolving since then. Nothing appears to make is worse or better (specifically no worse with eating). Occasionally goes down to her right shoulder but mostly under her jaw. Non exertional, pleuritic or positional. No associated diaphoresis, nausea or shortness of breath. She notes her symptoms are similar but much milder than when she had her STEMI. She notes going through cardiac rehab and doing well without recurrence of her symptoms. She has even gone back to spinning class (during which she had her STEMI in Oct) without recurrence of her symptoms. She reports taking her medications without missing any doses. She denies any family history of pro-thrombotic disorders or autoimmune conditions such as lupus, rheumatoid arthritis, vasculitis. While in the ER she was given nitroglycerin 0.4mg SL tab which helped relieve some of the shoulder pain but her jaw pain remains, currently mild. Principal Diagnosis NSTEMI Discharge Exam Constitutional WD/WN, vitals as above Eyes PERRL, conjunctivae normal, anicteric sclerae ENMT external ear and nose normal, oropharynx normal Neck trachea midline, no thyromegaly Respiratory normal respiratory effort, lungs clear to auscultation Cardiovascular RRR, no murmur, no edema (right forearm tense from hematoma from radial artery) Gastrointestinal (Abdomen) normal bowel sounds, soft, nontender, no hepatosplenomegaly Musculoskeletal no cyanosis or clubbing, extremities motor strength 5/5 Skin no rashes, warm and dry Neurologic patellar DTR's 2+ bilat, sensation intact and PERRL, EOMI, accommodation nl, no face palsy, no dysarthria Psychiatric A+Ox3, euthymic affect Lymphatic no cervical or axillary lymphadenopathy Discharge Data Allergies Allergy/AdvReac Type Severity Reaction Status Date / Time No Known Drug Allergies Allergy Verified 04/07/20 11:27 Consultations 04/07/20 14:11 ED Decision to Admit Stat 04/07/20 17:11 Consult Cardiology Routine Procedures Performed Operation Date: 04/08/20 09:30 Actual Procedures p Cath, Left with Cors and Vent - Gerardo Coombs MD s Cineradiography w/Routine Exam - Gerardo Coombs MD s Drug Eluting Stent SGl Vessel - Gerardo Coombs MD s Fraction Flow [place] SGL Ves - Gerardo Coombs MD s IVUS Coronary Single Vessel - Gerardo Coombs MD Ordered Studies 04/08/20 06:34 CL Cath Imgs for PACS use only Routine 04/08/20 12:26 CL IVUS Coronary Single Vessel Routine Hospital Course (1) Non-ST elevation [place] (NSTEMI): presented with ongoing right jaw/neck pain similar to her prior STEMI pain was relieved with nitro admitted to PCU, treated with heparin drip, aspirin, Brilinta, Crestor left heart cath on 04/08 with severe 70% stenosis in LAD, treated with one SMITHA the prior stent in RCA was widely patent transferred back to PCU, no issues over night Dr. Coombs okay with discharge, continue on DAPT for one year, Crestor Amlodipine 2.5mg daily added for small vessel disease cannot take beta kol[place] due to dizziness in the past (2) Hyperlipidemia: Continue rosuvastatin 20mg daily (3) CAD (coronary artery disease), [place] coronary artery: Continue her usual medications ASA, Brillinta, rosuvastatin. Unable to tolerate BB due to dizziness Total Time Total Time Spent Total Time Spent (In Minutes): 31 Total Time Includes: Examination of the Patient, Discharge Planning, Medication Reconciliation and Communication With Other Providers Discharge Plan Discharge Items Patient Disposition: Home - Self-Care Reason For Visit: NSTEMI Discharge Diagnosis: NSTEMI Drug eluting stent to mid LAD coronary artery Condition on Discharge: Good Goals: get rest, avoid heavy lifting/exercise next week start on amlodipine 2.5mg daily continue dual antiplatelet therapy with aspirin and Brilinta follow up with Dr. Coombs in one week Activity: Per Instructions section Activity Comment: avoid flexing right wrist for one week Lifting: No more than 5 pounds Lifting Comment: for one week Bathing: No limitations Sexual Activity: Wait until after follow-up appointment Exercise/Sports: Wait until after follow-up appointment Driving/Machine Use: No limitations Weightbearing: Full weightbearing Non-emergency contact: Primary Care Provider and Senior Medical Billing Specialist Call non-emergency contact if: you have any medication questions and your symptoms worsen Follow-up/Referrals: Mago Girard MD [Primary Care Provider] - 04/27/20 2:00 pm (2-3 weeks) Gerardo Coombs MD [Physician] - 04/13/20 10:30 am (one week) Diet: Heart Healthy Addtl Attending Provider Instructions: Medications: - AMLODIPINE: 2.5mg daily, new medication added by Dr. Coombs NSTEMI, left heart cath with severe disease in LAD coronary artery, successful drug eluting stent to LAD continue aspirin and Brilinta, these are essential to keeping stents open continue Crestor and fish oil started on amlodipine for small vessel disease Please get rest, no strenuous activity, no work for one week, please follow up with Dr. Coombs next week Pending Studies at Discharge: No Stand-Alone Forms: My [facility] Aductions, Work/School Release (Inpt), Smoking Cessation Medications and DC Order Prescriptions: New amlodipine [Norvasc] 5 mg Tablet 2.5 mg PO QAM 30 Days Qty: 15 RF: 3 Continued rosuvastatin 20 mg tablet 20 mg PO DAILY Qty: 90 RF: 1 nitroglycerin [Nitrostat] 0.4 mg tablet, sublingual 0.4 mg sublingual PRN PRN (Reason: chest pain) Qty: 1 RF: 0 coenzyme Q10 100 mg capsule 100 mg PO DAILY Qty: 30 RF: 0 omega 4-arr-kdu-fish oil [Fish Oil] 1,000 mg (120 mg-180 mg) Capsule 1 cap PO BID RF: 0 Allergy Relief (cetirizine) 10 mg Capsule 10 mg PO DAILY PRN (Reason: Allergy Symptoms) RF: 0 diclofenac sodium 1 % gel 2 g TOPICAL QID PRN (Reason: Pain) RF: 0 Brilinta 90 mg Tablet 90 mg PO BID Qty: 60 RF: 11 aspirin [Ecotrin Low Strength] 81 mg Tablet,Delayed Release (Dr/Ec) 81 mg PO QAM Qty: 90 RF: 3 Discharge Orders: Discharge Order (Routine); Ordered 04/09/20 Ordered By: Edgar Gibbs Admission Data Admit Date/Time: 04/07/20 15:03 Attending Provider: Edgar Gibbs Admit Provider: Manfred Livingston Primary Care Provider: Mago Girard Other Providers: Manfred Livingston ; Gerardo Coombs Other Interventions: Discharge Summary Assessment (RN) Last Done: 04/09/20 09:56 DC Date/Time DO NOT enter until pt leaves facility: 04/09/20 10:07 Coding Level of Care Code D/C Day Management >30 mins Diagnoses Non-ST elevation [place] (NSTEMI) I21.4 Hyperlipidemia E78.5 CAD (coronary artery disease), [place] coronary artery I25.10
[2020-04-09] MEDS ORDERED: AMLODIPINE BESYLATE 5 MG TAB PO SCH (09:00)
[2020-04-09 09:34] LABS: BUN Creatinine Ratio 9.3 (10-20); Calcium 8.8 mg/dl (8.5-10.1); Creatinine Clr Calc Pharmacy 74.5 ml/min; Est GFR (Non-African American) 72.5; Potassium 3.4 mmol/L (3.5-5.1)
== END 2020-04-09 10:07 | disposition home or self-care (01) | DRG 247 ==
LOC: ED 10:50 → 1E 15:03 → SUATTDRO 15:03 → 1E 16:30